=== PATIENT | female | born 1960 | race Caucasian/White ===

== ENCOUNTER 2018-03-12 08:57 | Outpatient (CLI) | payer OTHER, SELFPAY ==
[2018-03-12] MEDS: Albuterol HFA 18 GM 200 PUFF INH IH (15:36)
[2018-03-12] MEDS: Inhaler, Assist Device 1 EACH MC (15:36)
--- NOTE | 2018-03-14 12:24 | PFT_ITS ---
REQUESTING PROVIDER: Tiff Landaverde N.P. Spirometry shows mild obstructive airways disease with no significant bronchodilator response. Lung volumes show no evidence of restriction. Diffusion capacity borderline mildly reduced which is normal when corrected to alveolar volume Airways resistance normal. IMPRESSION: Borderline mild obstructive airways disease with no significant bronchodilator response. This is associated with borderline mild diffusion defect. Clinical correlation recommended. Images scanned to EMR. HAND SIGNED COPY OF THIS NOTE IS SCANNED INTO THE EMR SEE SCANNED DOCUMENT IN THE EMR FOR DATA AND GRAPHS
== END 2018-03-12 09:17 ==
PROVIDERS: PCP Nurse Practitioner Primary Care; Visit Provider Nurse Practitioner Family
DX: J98.01 Acute bronchospasm (principal)
CPT/HCPCS: 94060; 94150; 94726; 94729

== ENCOUNTER 2018-03-27 00:41 | Outpatient (CLI) | payer OTHER, SELFPAY ==
--- NOTE | 2018-03-27 15:13 | DI.MAMMO_ITS ---
SYMPTOM/DIAGNOSIS: SCREENING, Z12.31 MAMMOGRAMS: Mammograms were interpreted according to the usual protocol including computer analysis with CAD system, tomosynthesis and C view imaging. Comparison with prior examinations. Breast density, C. No masses or microcalcifications are seen. There is nothing to suggest malignancy. IMPRESSION: Negative mammogram. Routine screening is recommended. Category 1 , C. MQSA ASSESSMENT OF FINDINGS: Negative. Category 1. Patient will receive a letter notifying them of these results. Bi-RADS category C. The breasts are heterogeneously dense, which may obscure small masses.
== END 2018-03-27 01:01 ==
PROVIDERS: PCP Nurse Practitioner Primary Care; Visit Provider Nurse Practitioner Family
DX: Z12.31 Encounter for screening mammogram for malignant neoplasm of breast (principal)
CPT/HCPCS: 77063; 77067

== ENCOUNTER 2018-09-06 15:45 | Outpatient (REF) | payer OTHER, SELFPAY ==
[2018-09-06 22:04] LABS: Abs Immature Grans 0.01 k/cumm (0.0-0.09); Absolute Basophil Count 0.02 k/cumm (0.0-0.2); Absolute Eosinophil Count 0.19 k/cumm (0.0-0.7); Absolute Monocyte Count 0.56 k/cumm (0.11-0.7); Absolute Neutrophil Count 2.65 k/cumm (1.2-6.7); Basophils % 0.4; Eosinophils % 3.5; HCT 41.1 % (36.0-46.0); HGB 13.6 g/dL (12.0-15.5); Immature Grans % 0.2; Lymphocytes % 36.8; Mean Corp. HGB Concentration 33.1 g/dL (32.0-36.0); Mean Corpuscular Hemoglobin 29.7 pg (27.0-33.0); Mean Corpuscular Volume 89.7 fL (80-95); Mean Platelet Volume 10.7 fL (8.0-11.0); Monocytes % 10.3; Neutrophils % 48.8; Platelet Count 207 x1000/uL (130-400); RBC 4.58 m/cumm (4.00-5.20); White Blood Cell Count 5.43 k/cumm (4.4-10.8)
[2018-09-06 22:14] LABS: Iron 68 ug/dL (50-175); Total Iron Binding Capacity 323 ug/dL (250-450); Transferrin Sat 21 % (15-50)
[2018-09-06 22:31] LABS: Anion Gap 6.3 mmol/L (3-11); BUN 13 mg/dL (7-18); CO2 29.7 mmol/L (21.0-32.0); CREATININE 1.14 mg/dL (0.55-1.02); Calcium 9.2 mg/dL (8.5-10.1); Chloride 105 mmol/L (98-107); Estimated GFR 48.79 (mL/min/1.73m2); Ferritin 102 ng/mL (8-388); Glucose 205 mg/dL (70-100); Potassium 4.2 mmol/L (3.5-5.1); Sodium 141 mmol/L (136-145); TSH (W/Ref FT4) 1.61 uIU/mL (0.358-3.74)
== END 2018-09-06 16:05 ==
LOC: NCHCN 15:45
PROVIDERS: PCP Nurse Practitioner Primary Care; Visit Provider Nurse Practitioner Family
DX: F32.9 Major depressive disorder, single episode, unspecified (principal); J45.990 Exercise induced bronchospasm; R51 Headache; J44.9 Chronic obstructive pulmonary disease, unspecified; G47.00 Insomnia, unspecified
CPT/HCPCS: 80048; 82728; 83540; 83550; 84443; 85025

== ENCOUNTER 2018-09-14 16:31 | Outpatient (REF) | payer OTHER, SELFPAY ==
[2018-09-14 21:15] LABS: Hemoglobin A1C 6.3 % (4.5-6.2)
== END 2018-09-14 16:51 ==
LOC: NCHCN 16:31
PROVIDERS: PCP Nurse Practitioner Primary Care; Visit Provider Nurse Practitioner Family
DX: Z13.1 Encounter for screening for diabetes mellitus (principal); Z86.32 Personal history of gestational diabetes
CPT/HCPCS: 83036

== ENCOUNTER 2018-12-19 01:19 | Outpatient (CLI) | payer OTHER, SELFPAY ==
--- NOTE | 2018-12-19 14:00 | NS.NUTBLAN_ITS ---
Renetta Eric presents for prediabetes nutrition consult. She is concerned that her A1c is 6.3 3 months ago. In addition, she is concerned about how to nourish herself on a 4 day solo hike. She reports times in her life when she felt hypoglycemic and tends to eat every 3 hours or so. Renetta has lost 10 pounds over the past 2 months by cutting out coke and chocoloate. She has also decreased white flour, rice and sugar. She has plateaued at 140 pounds. BMI 21 Renetta eats oatmeal, cranberries and walnuts for breakfast; miso noodle soup, spinach and chives at lunch; salad, small turkey jeaneth for supper. She snacks on peanut butter crackers or applesauce. She is experienced at cooking on the hike with cold water noodles and brown rice with dheydrated vegetables. She eats trail mix of cherries, dark chocolate, almonds and cashews.She dehydrates sweet potato for her hike and eats dehydrated packaged protein and mixed meals. She believes she needs 3000 calories a day on her hike. INTERVENTION:Discussed diagnosis and pancreatic insufficiency versus insulin resistance. Given her BMI, it appears her elevated blood sugar is not because of insulin resistance. Discussed what happens with exercise and encouraged her to nourish herself as she can to keep her energy up during her hike.If blood sugars are elevated secondary to carbohydrate intake, it should be temporary, and unlikely given her energy expenditure. Reviewed diabetes food guide to identify foods that raise blood sugar; best carbohydrates to manage blood sugars and to nourish herself. She meets the prevent type2 diabetes recommendations of weight loss and physical activity and should not lose any more weight. PLAN: She will pack food for survival for her 4 da hike. She will look at diabetes food guide to plan meals She will be reassessed for diabetes risk in the near future.
== END 2018-12-19 01:39 ==
PROVIDERS: PCP Nurse Practitioner Primary Care; Visit Provider Dietitian, Registered
DX: R73.03 Prediabetes (principal); Z71.3 Dietary counseling and surveillance
CPT/HCPCS: 97802

== ENCOUNTER 2019-08-01 12:27 | Outpatient (REF) | payer OTHER, SELFPAY ==
--- NOTE | 2019-08-01 10:40 | PAPFT_PTH ---
PATIENT: Renetta Eric LOC: [facility]#:[id number] AGE/SX: 59/F ROOM: RE08/01/[address]: Tiff Landaverde : 1960 BED: DIS: 08/01/2019 SPEC #: [id number] RECD: 08/02/19 13:04 STATUS: CHEN [place] #: [id number] KRYSTAL: 08/01/19 10:[address]: Tiff Landaverde DEPT: [facility] Cytology RECD BY: Shelia Laguna ENTERED: 08/02/19 13:04 SP TYPE: PAPFT BRANT DR: Sophie Baez, [facility] Tissues: 1 - CX/ENDOCX FOR PAP SMEARS Procedures: PAP THIN PREP/UVM Screening HPV DNA PROBE Comments: [id number]
== END 2019-08-01 12:47 ==
LOC: NCHCN 12:27
PROVIDERS: PCP Nurse Practitioner Primary Care; Visit Provider Nurse Practitioner Family
DX: Z00.00 Encounter for general adult medical examination without abnormal findings (principal); Z12.4 Encounter for screening for malignant neoplasm of cervix; Z01.419 Encounter for gynecological examination (general) (routine) without abnormal findings; Z11.51 Encounter for screening for human papillomavirus (HPV)
CPT/HCPCS: 88142; 87624

== ENCOUNTER 2019-08-01 14:54 | Outpatient (CLI) | payer OTHER, SELFPAY ==
[2019-08-01 16:32] LABS: TSH (W/Ref FT4) 1.21 uIU/mL (0.36-3.74); Vitamin B12 682 pg/mL (193-986)
== END 2019-08-01 15:14 ==
PROVIDERS: PCP Nurse Practitioner Family; Visit Provider Nurse Practitioner Family
DX: R41.3 Other amnesia (principal); N95.1 Menopausal and female climacteric states
CPT/HCPCS: 36415; 82607; 84443

== ENCOUNTER 2019-09-05 01:44 | Outpatient (CLI) | payer OTHER, SELFPAY ==
--- NOTE | 2019-09-05 | DI.MAMMO_ITS ---
EXAM: MG MAMMO SCREENING CLINICAL HISTORY: SCREENING, Z12.31 TECHNIQUE: Bilateral full field digital CC and MLO mammographic images were obtained with 3D tomosyn thesis and utilizing computer aided detection (CAD). COMPARISON: Available for comparison. FINDINGS: Masses/Architectural Distortion: None seen. Microcalcifications: No suspicious pleomorphic-type are seen. Skin Thickening/Nipple Retraction: None. IMPRESSION: 1. No significant interval change with no specific features of malignancy noted. 2. Unless there is more urgent need, screening mammography is recommended, as per [employer] guidelines. BI-RADS Cat 1 - Negative Breast Density - Category C - Heterogeneously dense The mammogram demonstrates the patient's breast tissue is dense. Dense breast tissue is very common a nd is not abnormal but dense breast tissue can make it harder to find cancer on a mammogram. Also, de nse breast tissue may increase their breast cancer risk. This information about the result of the [facility] mogram report was provided to the patient to raise their awareness. Use this report when you speak wi th the patient about their risks for breast cancer, which includes their family history. At that time , you may recommend for more screening tests (Ultrasound or MRI) as they might be useful based on the ir risk. A negative radiographic report should not delay biopsy if a dominant or clinically suspicious mass is present. Up to ten percent of cancers are not identified on mammography. A negative report may reinforce clinical impression. Adenosis and dense breasts may obscure an underlying neoplasm. False positive reports average 6 to 10%. Patient will receive a letter notifying them of these results.
== END 2019-09-05 02:04 ==
PROVIDERS: PCP Nurse Practitioner Family; Visit Provider Nurse Practitioner Family
DX: Z12.31 Encounter for screening mammogram for malignant neoplasm of breast (principal)
CPT/HCPCS: 77063; 77067

== ENCOUNTER 2020-12-18 20:20 | Outpatient (REF) | payer OTHER, SELFPAY ==
[2020-12-21 09:26] LABS: Alpha 1 Antitrypsin,Serum 97 mg/dL (90-200)
== END 2020-12-18 20:21 | disposition home or self-care (01) ==
LOC: NCHCN 20:20
PROVIDERS: PCP Nurse Practitioner Family; Visit Provider Nurse Practitioner Family
DX: J44.9 Chronic obstructive pulmonary disease, unspecified (principal)
CPT/HCPCS: 82103

== ENCOUNTER 2021-01-25 07:15 | Day surgery (SDC) | payer OTHER, SELFPAY ==
--- NOTE | 2021-01-25 06:40 | W.COLOREPORT ---
Date of service: 01/25/21 Time of Service: 08: Colonoscopy Report Date of procedure: 01/25/21 Pre-op diagnosis general: Colon Cancer Screening, Family history Post-op diagnosis procedure note: same (and polyps) Procedure: Colonoscopy with polypectomy Surgeon: Kristan Felix Anesthesia Type: General:No Airway (ASA 2/Blane Montgomery CRNA) Estimated blood loss (mL): 3 Pathology: other (sigmoid polyp, rectal polyp x5) Complications: None Disposition: same day Indications: The patient is here for Colonoscopy pre-op. Her last screening was in 2015 and was remarkable for hyperplastic polyp. She has a family history of colon cancer in her sister at the age of 51. Of note she reports a history of IBS and she has been noting more frequent episodes (1-2x/wk) of cramping and diarrhea. These bouts last ~20 mins and then completely resolve. -Discussed colonoscopy bowel prep as well as the procedure. Discussed possible complications of the procedure to include bleeding, pain, perforation, missed small lesion/polyp, sore throat, aspiration and adverse reaction to the medications. Questions were answered to patient?s satisfaction. No guarantees were implied or given. Prep: Miralax/Dulcolax Procedure Start Time: :22 Procedure End Time: 08:59 Retraction Time: 26 minutes Findings: 6 small polyps Procedure Description: After informed consent was obtained the patient was taken to the procedure room and placed in a left decubitous position. Monitors were applied and a time out was done. The patients name, date of , procedure, allergies to medications and metal in their body was reviewed. The patient was then sedated. Once sedated and comfortable a rectal exam was done. External exam was normal. Internal exam revealed a normal sphincter tone and no palpable masses. The scope was then introduced and retro-flexed. No internal hemorrhoids, polyps or masses were identified on retro-flexion. The scope was then advanced to the cecum with some difficulty due to a tortuous colon. The ileocecal valve and appendiceal orifice were identified. The prep was adequate. The scope was then slowly retracted over 26 minutes back into the rectum. Polyps were removed with cold forceps in the sigmoid colon x1 and rectum x3. 2 polyps were removed with cold snare in the rectum. There was no diverticulosis noted. The scope was removed and the patient was woken up and taken back to Same day surgery in stable condition. The patient tolerated the procedure well and there were no immediate complications. Follow up: The patient should follow up in 5 years unless they develop changes in bowel habits or other new gastrointestinal complaints.
--- NOTE | 2021-01-25 06:41 | W.PM.DSUDISC ---
Discharge Plan Disposition Patient Disposition: HOME Condition: Good Discharge Details Reason For Visit: Colonoscopy Attending Provider: Kristan Felix Primary Care Provider: Tiff Landaverde Home Meds and New Rx's Prescriptions: Continued bupropion HCl [Wellbutrin XL] 300 MG tablet extended release 24 hr 300 mg PO DAILY RF: 0 albuterol sulfate [ProAir HFA] 90 mcg/actuation HFA aerosol inhaler 2 puff inhalation Q6H PRNRF: 0 zolpidem 5 mg tablet 5 mg PO QHS PRNRF: 0 acetaminophen [Tylenol Extra Strength] 500 mg tablet 1,000 mg PO Q6H PRNRF: 0 Glucoten 1 EACH tablet 2 tab PO DAILY RF: 0 Discontinued bisacodyl [Dulcolax (bisacodyl)] 5 mg tablet,delayed release (DR/EC) 5 mg PO ONCE Qty: 4 RF: 0 polyethylene glycol 3350 17 gram/dose powder 17 g PO ONCE Qty: 238 RF: 0 Discharge Instructions Instructions: Colorectal Polyps (GEN) Additional Instructions: Findings: 6 small polyps Follow up: 5 years Please call if you develop: fevers >101.5 Nausea or Vomiting Abdominal pain that is not transient Rectal bleeding that is more then a tbsp A hard abdomen and inability to pass gas DAY SURGERY UNIT POST ENDOSCOPY INSTRUCTIONS Instructions for everyone who is given Anesthesia: For your safety, please do the following for the next 24 Hours: a. Do not drive or operate dangerous equipment b. Do not drink alcohol beverages or use any recreational drugs for the first 24 hours or while taking pain medications. The medications in your body may have a reaction that can be dangerous. c. Do not make any important decisions or sign any important papers 1. Generally there are no restrictions on your activity after a day or so has gone by, but you may feel a bit fatigued for a few days. 2. After you arrive home you may have a light meal and return to a normal diet as you can tolerate it without feeling sick to your stomach. 3. After surgery, you may feel pain or discomfort. This should be only transient, but if it persists please contact your doctor. 4. If there are any questions regarding the findings of your procedure, please feel free to contact your doctor. 6. If you are unable to contact your doctor with a problem, contact the hospital at [phone]. 7. Continue all your regular medications unless directed otherwise. I understand the above instructions and have no questions. Signature of Patient or Responsible Adult Escort Date/Time Name of Responsible Adult Escort Signature of Nurse Date/Time Activity:: Activity as Tolerated Diet:: As Tolerated Discharge Orders Discharge Orders: Discharge Order (Routine); Ordered 01/25/21 Ordered By: Kristan Felix
[2021-01-25 07:32] VITALS: BP 133/85; PULSE 72; RESP 16; TEMP 36.3; O2SAT 98
[2021-01-25] MEDS: Lactated Ringers 1,000 ML 80 ML IV (07:43)
--- NOTE | 2021-01-25 07:47 | W.ANESPRE ---
General Info Date of Service Date Performed: 01/25/21 Height: 5 ft 8 in Weight: 62.5 kg Body Mass Index (BMI): 20.9 Surgical Procedure: Operation Date: 01/25/21 08:20 Proposed Procedures Side Surgeon p Phyllis Felix MD Meds Allergies and Home Medications Allergies Allergy/AdvReac Type Severity Reaction Status Date / Time ibuprofen AdvReac Diarrhea Verified 01/25/21 07:27 Home Medication Medication Instructions Recorded bupropion HCl [Wellbutrin XL] 300 mg PO DAILY tab-cap 02/08/16 Glucoten 2 tab PO DAILY 02/24/16 acetaminophen 500 mg tablet 1,000 mg PO Q6H PRN tab 12/22/20 albuterol sulfate 90 mcg/actuation 2 puff INHALATION Q6H PRN 12/22/20 aerosol inhaler zolpidem 5 mg tablet 5 mg PO QHS PRN 12/22/20 bisacodyl 5 mg tablet,delayed 5 mg PO ONCE #4 tab 01/14/21 release polyethylene glycol 3350 17 17 g PO ONCE #238 g 01/14/21 gram/dose oral powder Current Visit Medications: Current Medications Generic Name Dose Route Start Last Admin Trade Name Freq PRN Reason Stop Dose Admin Hyoscyamine Sulfate 0.125 mg 01/25/21 06:41 Hyoscyamine 0.125 Mg Sl/Oral/Chew SL DIRECTED PRN Ringer's Solution 1,000 mls @ 80 mls/hr 01/25/21 06:00 01/25/21 07:43 IV 02/21/21 23:59 80 mls/hr INFUSION YONG Administration IV Miscellaneous Supplies 1 each 01/25/21 06:00 Iv Access IV 02/21/21 23:59 DIRECTED YONG Ondansetron HCl 4 mg 01/25/21 06:41 Ondansetron 4 Mg/2 Ml Vial IVP Q4H PRN PRN Nausea / Vomiting Sodium Chloride 0 ml 01/25/21 06:00 Normal Saline Flush 10 Ml Syr IV 02/21/21 23:59 PRN PRN Sodium Chloride 0 ml 01/25/21 06:00 Normal Saline 10 Ml Vial IJ 02/21/21 23:59 DIRECTED PRN Sterile Water 0 ml 01/25/21 06:00 Water,Injection,Sterile 10 Ml Vial IJ 02/21/21 23:59 DIRECTED PRN PFSH Active Problems Active Problems: Problem Status Onset Code Stress incontinence N39.3 Adjustment disorder F43.20 Memory impairment R41.3 Former smoker Z87.891 Insomnia G47.00 COPD (chronic obstructive pulmonary disease) J44.9 Chronic headaches R51.9, G89.29 Prediabetes R73.03 Screening for colon cancer Z12.11 Family history of colon cancer Z80.0 Encounter for screening for other viral diseases Z11.59 Medical History Medical History Depression IBS (irritable bowel syndrome) Surgical History Surgical History Colonoscopy - IV Sedation (02/24/16) Tobacco Smoking/Tobacco Use Status: Former Tobacco Use Alcohol Alcohol Intake: current Alcohol intake frequency: 0-2 drinks per day Alcohol type: wine Substance Use Substance use: Never Vital Signs and Lab Results Vital Signs Most Recent Vital Signs in EMR: Most Recent Vital Signs Temp Pulse Resp BP Pulse Ox 36.3 C L 72 16 133/85 98 01/25/21 07:32 01/25/21 07:32 01/25/21 07:32 01/25/21 07:32 01/25/21 07:32 Lab Results Blood Type / Crossmatch: No Data to Display Complete Blood Count: No Data to Display Complete Metabolic Panel: No Data to Display Liver Function Panel: No Data to Display Coagulation Panel: No Data to Display Cardiac Panel: No Data to Display Arterial Blood Gas: No Data to Display Venous Blood Gas: No Data to Display Pancreas Panel: No Data to Display Thyroid Panel: No Data to Display Infectious Disease: No Data to Display Blood Cultures: No Data to Display Toxicology Panel: No Data to Display Imaging and Studies Imaging and Studies Pulmonary Function Summary: 2018: boarderline mild obstructive airways and diffusion defect. Anesthesia Assessment and Plan Anesthesia History Personal History: No History of Anesthesia Complications Family History: No Family History of Anesthesia Complications Exercise Tolerance Exercise Tolerance: Metabolic Equivalents>4 Cardiac & Pulmonary Exam Cardiac Exam: Normal S1/S2 Heart Sounds Pulmonary Exam: Clear Bilateral Breath Sounds Airway Exam Known Difficult Airway: No Mallampati Class: 2 Mouth Opening: Normal (> 3cm) Thyromental Distance: Greater than 3 cm Neck Range of Motion: Full ROM Neck Circumference: Normal Teeth Condition: Normal Dentition ASA Classification ASA Score: ASA 2 Emergency Case?: No NPO Status NPO Status: NPO Clears >2 hours, Solids >8 hours Anesthesia Plan Resuscitation Status: Full Code Anesthesia Technique: General Anesthesia Airway Planned: Natural Airway Monitors Used: Standard Monitors Preoperative Comments:: 60 yo female for colo, last screening 2016 with polyps, and family history of colon cancer.
[2021-01-25 08:00] VITALS: BMI 20.9
--- NOTE | 2021-01-25 08:25 | BOWEL_PTH ---
PATIENT: Renetta Eric LOC: [facility] U#:[id number] AGE/SX: 60/F ROOM: RE01/25/[address]: Kristan Felix MD : 1960 BED: DIS: 01/25/2021 SPEC #: [id number] RECD: 01/25/21 12:45 STATUS: CHEN REQ #: [id number] KRYSTAL: 01/25/21 08:[address]: Kristan Felix DEPT: Surgical Specimen RECD BY: Shelia Laguna ENTERED: 01/25/21 12:45 SP TYPE: Bowel OTHR DR: Tiff Landaverde Tissues: 1 - BIOPSY BOWEL 2 - BIOPSY BOWEL Procedures: GROSS AND MICRO LEVEL 4 Comments: [id number]
[2021-01-25 09:10] VITALS: BP 127/78; PULSE 66; RESP 16; TEMP 36; O2SAT 97
[2021-01-25 09:37] VITALS: BP 126/80; PULSE 54; RESP 15; TEMP 36; O2SAT 100
--- NOTE | 2021-01-25 14:14 | W.ANESPOSTOP ---
Postoperative Evaluation Date, Time and Location Date Performed: 01/25/21 Time Performed: 14:14 Patient Location: Day Surgery Unit Vital Signs Most Recent Imported Vital Signs: Most Recent Vital Signs Temp Pulse Resp BP Pulse Ox 36.0 C L 54 L 15 126/80 100 01/25/21 09:37 01/25/21 09:37 01/25/21 09:37 01/25/21 09:37 01/25/21 09:37 Pain Score Most Recent Pain Score: Most Recent Pain Score Pain Level 0 01/25/21 09:37 Assessment Mental Status: Awake (Alert & Oriented to Patient Baseline) Airway and Respiratory Function: Patent airway with normal (patient baseline) respiratory exam Cardiovascular Function: Hemodynamically Stable Hydration Status: Adequately Hydrated Nausea & Vomiting: No Nausea or Vomiting Pain: Pt. Denies Any Pain Peripheral Nerve Block: Patient did not receive a nerve block
== END 2021-01-25 10:05 | disposition home or self-care (01) ==
PROVIDERS: PCP Nurse Practitioner Family; Visit Provider Surgery
PROC: 0DJD8ZZ Inspection of Lower Intestinal Tract, Via Natural or Artificial Opening Endoscopic (ICD-10-PCS; CPT 45378; principal; 2021-01-25 08:15)
DX: Z12.11 Encounter for screening for malignant neoplasm of colon (principal); Z80.0 Family history of malignant neoplasm of digestive organs; Z86.010 Personal history of colon polyps; K58.9 Irritable bowel syndrome, unspecified; R73.03 Prediabetes; J44.9 Chronic obstructive pulmonary disease, unspecified; K63.5 Polyp of colon; K62.1 Rectal polyp; D12.5 Benign neoplasm of sigmoid colon
CPT/HCPCS: 45385; 45380; 88305; J2001

== ENCOUNTER 2021-06-23 15:06 | Outpatient (CLI) | payer OTHER, SELFPAY ==
--- NOTE | 2021-06-23 | DI.RAD_ITS ---
Exam(s) XR FOOT RT COMPLETE EXAM: XR FOOT RT COMPLETE CLINICAL HISTORY: HEEL PAIN, M79.673. TECHNIQUE: 2D digital imaging was performed of the right foot. Three images were obtained. AP, obl ique and lateral views were obtained. COMPARISON: No previous for comparison. FINDINGS: BONES: No acute fracture is present. No bony destructive lesion is seen. There is a tiny calcaneal sp ur. JOINTS: No dislocation present. SOFT TISSUE: Normal. IMPRESSION: Small plantar calcaneal spur. DATA REPOSITORY: RADIATION DOSE DELIVERED:
--- NOTE | 2021-06-23 | DI.RAD_ITS ---
Exam(s) XR FOOT LT COMPLETE EXAM: XR FOOT LT COMPLETE CLINICAL HISTORY: HEEL PAIN, M79.673. TECHNIQUE: 2D digital imaging was performed of the left foot. Three images were obtained. AP, obli que and lateral views were obtained. COMPARISON: No exams were available for comparison FINDINGS: BONES: No acute fracture is present. No bony destructive lesion is seen. There is a small plantar marlo caneal spur. JOINTS: No dislocation present. SOFT TISSUE: Normal. IMPRESSION: Small plantar calcaneal spur. DATA REPOSITORY: RADIATION DOSE DELIVERED:
== END 2021-06-23 15:26 ==
PROVIDERS: PCP Nurse Practitioner Family; Visit Provider Nurse Practitioner Family
DX: M79.671 Pain in right foot (principal); M79.672 Pain in left foot; M77.31 Calcaneal spur, right foot; M77.32 Calcaneal spur, left foot
CPT/HCPCS: 73630

== ENCOUNTER → 2022-01-20 00:46 | Outpatient (CLI) | payer OTHER, SELFPAY ==
--- OUTSIDE RECORDS SUMMARY | 2022-01-20 00:49 | XMS_ITS | Encounter Summary ---
:1960 Author Organization [facility] Address [address] [place] [address] Care Team Providers Name Role Phone Mirza Shukla Primary Care Provider Encounter Details Date Type Department Care Team Description 07/26/2011 Results Only [facility] Mirza Shukla FNP Laboratory Services - [facility] [address] [address] [place], [place] [id number] [phone] Social History Tobacco Use Types Packs/Day Years Used Date Never Assessed Sex Assigned at Date Recorded Not on file documented as of this encounter Plan of Treatment Not on filedocumented as of this encounter Procedures Procedure Name Priority Date/Time Associated Diagnosis Comme nts PAP TEST- RESULT Routine 07/26/2011 0:00 EST Resu lts for this ONLY procedure are i n the results section. documented in this encounter Results PAP TEST- RESULT ONLY (07/26/2011 0:00 EST) Pathology Report: CYTOPATHOLOGY REPORT [facility] Reports generated via electronic interface contain keturah ginal data; however they are lacking the format of the original re port. Caution should be taken when reading/interpreting unfo rmatted reports. Name: ? RENETTA ERIC ? Accession #: ? [id number] : ? 1960 (Age: 51) ??F ?Collect Date: ? 07/04 Location: ? [facility] ? Receive Date : ? 07/28/2011 Provider: ?MIRZA SHUKLA SPEEDER MACHINE OPERATOR Copy to: ? Specimen/Source: ? Pap Test, Cervix/Endocervix, ThinPrep Imaging System with manual evaluation Last Menstrual Period: ? 07/04/2011 ? SPECIMEN ADEQUACY ? Satisfactory for Evaluation - transformation zone component present GENERAL CATEGORIZATION ? Negative for Intraepithelial Lesion or Malignan cy ? Document reviewed and electronically signed by: ? SHANNAN Carrizales(ASCP) ? Report Date: ??08/01/2011 15:23 End of Report Specimen Performing Organization Address City/State/ZIP Code Phon e Number [facility] [address] [place] [address] SERVICES [facility] [address] [place] [address] documented in this encounter Visit Diagnoses Not on filedocumented in this encounter Care Teams Last Repairer Relationship Specialty Start Date End Date Mirza Shukla FNP PCP - General 09/14/10 [address] [place], [place] [address] documented as of this encounter
--- OUTSIDE RECORDS SUMMARY | 2022-01-20 00:49 | XMS_ITS | Encounter Summary ---
:1960 Author Organization [facility] Address [address] [place] [address] Care Team Providers Name Role Phone Radha Shukla NURSE OBGYN Primary Care Provider Encounter Details Date Type Department Care Team Description 08/07/2020 Lab Requisition [facility] Outr Resulting Lab, Pathology & Laboratory Provider [facility] [address], [place] [address] Social History Tobacco Use Types Packs/Day Years Used Date Never Assessed Sex Assigned at Date Recorded Not on file documented as of this encounter Plan of Treatment Not on filedocumented as of this encounter Procedures Procedure Name Priority Date/Time Associated Diagnosis Comme nts COVID-19 TEST [facility] Today 08/07/2020 9:38 EST LAB PCR COVID-19 TESTING Routine 08/07/2020 9:38 EST Resu lts for this procedure are i n the results section. documented in this encounter Results COVID-19 TEST [facility] LAB PCR (08/07/2020 9:38 EST) Specimen Swab - Entire nasopharynx (body structur e) Performing Organization Address City/State/ZIP Code Phon e Number [facility] [address] [place] [address] SERVICES COVID-19 TESTING (08/07/2020 9:38 EST) COVID-19 rt-PCR Negative Negative [facility] Result Comment: [facility] This test has not been FDA c leared or approved. This test has been authorized by FDA under an EUA for use by authorized laboratories. This test has been authorized only for detection of nucleic acid fro SERVICES m 2019-nCoV, not for any oth er viruses or pathogens. This test is only authorized for the duration of the declaration that circumstances exist justifying the authorization of emergency use of in vitro d iagnostic tests for detectio n and/or diagnosis of 2019-nCoV under section 564(b)(1) of Act, 21 U.S.C ?? 360bbb-3(b) (1), unless the authorization is terminated or revoked sooner. Negative results do not prec lude 2019-nCoV infection and should not be used as the sole basis for treatment or other patient management decisions. Negative results must be combined with clinical observa tions, patient history, and epidemiological informatio n. Performed on the [employer] Fusion instrument Performing Lab [place] [facility] Lab [facility] SERVICES Specimen Swab Performing Organization Address City/State/ZIP Code Phon e Number [facility] [address] [place] [address] SERVICES documented in this encounter Visit Diagnoses Not on filedocumented in this encounter Care Teams Marine Underwriter Relationship Specialty Start Date End Date Radha Shukla FNP PCP - General 09/14/10 [address] [place], [place] [phone] documented as of this encounter
--- OUTSIDE RECORDS SUMMARY | 2022-01-20 00:49 | XMS_ITS | Encounter Summary ---
:1960 Author Organization [facility] Address [address] [place] [address] Care Team Providers Name Role Phone Unknown, Provider Primary Care Provider Encounter Details Date Type Department Care Team Description 04/08/2004 Results Only [facility] - Mirza Bazan FNP conversion [address] [place], [place] [address] [place] [address] [phone] (Wo rk) Social History Tobacco Use Types Packs/Day Years Used Date Never Assessed Sex Assigned at Date Recorded Not on file documented as of this encounter Plan of Treatment Not on filedocumented as of this encounter Procedures Procedure Name Priority Date/Time Associated Diagnosis Comme nts CYTOPATHOLOGY Routine 04/08/2004 0:00 EDT Results for this procedure are i n the results section . documented in this encounter Results CYTOPATHOLOGY (04/08/2004 0:00 EDT) Pathology Report: CYTOPATHOLOGY REPORT [facility] Reports generated via electronic interface contain keturah ginal data; however they are lacking the format of the original re port. Caution should be taken when reading/interpreting unfo rmatted reports. Name: ? RENETTA VAZQUEZ ? Accession #: ? [id number] : ? 1960 (Age: 43) ??F ?Collect Date: ? 01/2004 Location: ? [facility] ? Receive Date : ? 04/12/2004 Provider: ?MIRZA GANDHI QUALITY ASSURANCE TECH Copy to: ? Specimen/Source: ?ThinPrep Pap Test, Cervix/ Endocervix Last Menstrual Period: ? 03/06 Other: ? HPVA - HPV testing requested if ASC-US on the current ThinPrep Pap test. ? SPECIMEN ADEQUACY ? Satisfactory for Evaluation - transformation zone component present GENERAL CATEGORIZATION ? Negative for Intraepithelial Lesion or Malignan cy ? Document reviewed and electronically signed by: ? Becki Gaytan, SCT(ASCP) ? Report Date: ??04/14/2004 15:10 End of Report Specimen Performing Organization Address City/State/ZIP Code Phon e Number [facility] [address] [place] [address] SERVICES [facility] [address] [place] [address] documented in this encounter Visit Diagnoses Not on filedocumented in this encounter Care Teams Drafter Civil Relationship Specialty Start Date End Date Unknown, Provider, PCP - General 04/29/09 09/13/10 documented as of this encounter
--- OUTSIDE RECORDS SUMMARY | 2022-01-20 00:49 | XMS_ITS | Encounter Summary ---
:[address] [facility] Address [address] [place] [address] Care Team Providers Name Role Phone Radha Shukla LEVI Primary Care Provider Encounter Details Date Type Department Care Team Description 08/02/2019 Lab Requisition [facility] Tiff Landaverde En [place] for general adult medical examination without abnormal findings; Pathology & H, FIELD MARKETING MANAGER Encounter for screening for malignant ne oplasm of cervix; Laboratory Medicine [address] [facility] for gynecological examination (general) (routine) without abnormal findings - [facility] [address] [place] [phone] Social History Tobacco Use Types Packs/Day Years Used Date Never Assessed Sex Assigned at Date Recorded Not on file documented as of this encounter Plan of Treatment Not on filedocumented as of this encounter Procedures Procedure Name Priority Date/Time Associated Diagnosis Comme nts PAP TEST Today 08/01/2019 10:40 Encounter for general Re sults for this EST adult medical procedure are in examination without the resu lts abnormal finding s section. Encounter for screening for malignant neoplasm of cervix Encounter for gynecological examination (general) (routine) without abnormal findings HUMAN PAPILLOMAVIRUS Today 08/01/2019 10:40 Encounter for ge neral Results for this (HPV) DETECTION-HIGH EST adult medical proced ure are in RISK TYPES examination without the resu lts abnormal finding s section. Encounter for screening for malignant neoplasm of cervix Encounter for gynecological examination (general) (routine) without abnormal findings documented in this encounter Results HUMAN PAPILLOMAVIRUS (HPV) DETECTION-HIGH RISK TYPES (08/01/2019 10:40 EST) Human Papillomavirus NegativeComment: No Negative UV MEDICAL (HPV) Detection-High E6 or E7 mRNA is CENTER LABORATOR Y Types detected from HPV SERVICES types 16,18,31,33,35,39,45 ,51,52,56,58,59,66, and 68 by manager outreach mediated amplification. Specimen Pap Test - Cervix and/or Endocervix Performing Organization Address City/[facility]/ZIP Code Phon e Number [facility] [address] [place] [address] SERVICES PAP TEST (08/01/2019 10:40 EST) Specimens A. Cervix and/or [facility] MEDICAL Endocervix, , CENTER ThinPrep Imaging LABORATORY System with Manual SERVICES Evaluation Specimen Adequacy Satisfactory for UV MEDICAL Evaluation - CENTER assessment of LABORATORY transformation zone SERVICES component not applicable ( e.g. atrophy, vaginal sample, hysterectomy) General Negative for UV MEDICAL Categorization intraepithelial CENTER lesion or malignancy LABORATORY SERVICES Attestation By the signature below, the attending physician certifies that they have personally conducted a gross and/or microscopic [facility] Electronically examination of the described specimens and rendered or confirmed the above diagnosis. CENTER signed by MARIA A Gonzalez CT( CP) SERVICES on 08/09/2019 at 1535 Clinical History NONE [facility] SERVICES HPV The result for the Human Pap illomavirus (HPV) Detection-High Risk Types is Negative. No E6 or E7 mRNA is detected from HPV types 16,18,31,33,35,39,45,51,52,56,58,59,66, and 68 by manager outreach mediated M MEDICAL amplification.Testing was pe rformed on specimen [id number] and was resulted on 08/09/2019 1527 EST by MAGUE, LAB INSTRUMENT RESULTS IN [facility] SERVICES Scanned Images [facility] SERVICES Specimen Pap Test - Cervix and/or Endocervix Performing Organization Address City/[facility]/ZIP Code Phon e Number [facility] [address] [place] [address] SERVICES documented in this encounter Visit Diagnoses Diagnosis Encounter for general adult medical exam ination without abnormal findings Unspecified general medical examination Encounter for screening for malignant ne oplasm of cervix Screening for malignant neoplasm of the cervix Encounter for gynecological examination (general) (routine) without abnormal findings documented in this encounter Care Teams Award Clerk Relationship Specialty Start Date End Date Radha Shukla FNP PCP - General 09/14/10 [address] [place], [place] [id number] documented as of this encounter
--- OUTSIDE RECORDS SUMMARY | 2022-01-20 00:49 | XMS_ITS | Encounter Summary ---
:1960 Author Organization [facility] Address [address] [place] [address] Care Team Providers Name Role Phone Radha Shukla PAYROLL CLERK Primary Care Provider Encounter Details Date Type Department Care Team Description 02/24/[address] [facility] Andrew Gaming DO [phone] [facility] [place], [place] [phone] (Wo rk) Social History Tobacco Use Types Packs/Day Years Used Date Never Assessed Sex Assigned at Date Recorded Not on file documented as of this encounter Plan of Treatment Not on filedocumented as of this encounter Procedures Procedure Name Priority Date/Time Associated Diagnosis Comme nts SURGICAL PATHOLOGY Routine 02/24/2016 10:51 Resul ts for this EDT procedure are i n the results section. documented in this encounter Results SURGICAL PATHOLOGY (02/24/2016 10:51 EDT) Pathology Report: SURGICAL PATHOLOGY REPORT [facility] Reports generated via electronic interface contain keturah ginal data; LABORATORY however they are lacking the format of the original re port. SERVICES Caution should be taken when reading/interpreting unfo rmatted reports. Name: ? RENETTA ERIC ? Accession #: ? [id number] ? : ? 1960 (Age: 55) ??F ? Collect Date: ? 02/24/2016 ? Location: ? [facility] ? Receive Date: ? 02/25/20 16 ? Provider: ANDREW GAMING DO Copy to: [facility] SUPERVISOR ? Final Pathologic Diagnosis: RECTUM, POLYP, BIOPSY: - ??Hyperplastic polyp with prolapse-type change. Document reviewed and electronically signed by: LESLIE POTTS MD Report ??Date: 02/26/2016 11:25 By the signature above, the attending physician certif ies that he/she has personally conducted a gross and/or microscopic examin ation of the described specimens and rendered or confirmed the above diagnosi s. Specimen(s) Received: Rectal polyp Clinical History: Family h/o colon CA; clinical diagnosis code: Z80.0 Gross Description: ? Received in formalin labelled with proper patient identification (initials D, D) and rectal polyp are six pink-ta n tissues (0.2 x 0.2 x 0.2 cm to 0.3 x 0.2 x 0.2 cm). Entirely submitted in 1 and 2. Maria Luisa Elena 02/25/2016 12:08 PM End of Report Specimen Performing Organization Address City/State/ZIP Code Phon e Number [facility] [address] [place] [address] SERVICES documented in this encounter Visit Diagnoses Not on filedocumented in this encounter Care Teams Youth Manager Relationship Specialty Start Date End Date Radha Shukla FNP PCP - General 09/14/10 [address] [place] [address] documented as of this encounter
--- OUTSIDE RECORDS SUMMARY | 2022-01-20 00:49 | XMS_ITS | Encounter Summary ---
:1960 Author Organization [facility] Address [address] [place] [address] Care Team Providers Name Role Phone Unavailable Primary Care Provider Unavailable Encounter Details Date Type Department Care Team Description 04/27/2009 Orders Only [facility] Celso Arauz , Laboratory Services - [address] YARI CADENA [address] [place] [address] [place], [place] [phone] Social History Tobacco Use Types Packs/Day Years Used Date Never Assessed Sex Assigned at Date Recorded Not on file documented as of this encounter Plan of Treatment Not on filedocumented as of this encounter Procedures Procedure Name Priority Date/Time Associated Diagnosis Comme [facility] SURGICAL PATHOLOGY Routine 04/27/2009 0:00 EDT Re sults for this procedure are i n the results section. documented in this encounter Results SURGICAL PATHOLOGY (04/27/2009 0:00 EDT) Pathology Report: SURGICAL PATHOLOGY REPORT ? [facility] Reports generated via electr PacketFront interface contain original data; ? LAB however they are lacking the format of the original report. ? Caution should be taken when reading/interpreting unformatted reports. ? Name: ? TAYLOR, RENETTA ? Accession #: ? [id number] ? : ? 1960 (Age: 48) ??F ? Collec t Date: ? 04/27/2009 ? Location: ? [facility] ? R eceive Date: ? 04/28/2009 ? Provider: CELSO FORREST SON DO ? Copy to: MIRZA GANDHI DRUG ABUSE COUNSELOR ? Final Pathologic Diagnosis: ? Skin of leg, left, pr etibial surface, excision: ? - Seborrheic keratosi s. ? Microscopic Description: ? The stratum corneum i s thickened by compact and basketweave orthokeratosis with formation of horn pseud ocysts. ??The epidermis is acanthotic with formation of broad and anastomosing tr abeculae. ??The trabeculae are composed of basaloid ?? keratinocytes with round uni form nuclei. ??The keratinocytes have a variable ? amount of melanin pigment. ? ?(Dr. Tan)/maldonado ? Document reviewed and electr onically signed by: ? Chloe Tan MD ? Report ??Date: 04/29/2009 15 :02 ? By the signature above, the attending physician certifies that he/she has ? personally conducted a gross and/or microscopic examination of the described ? specimens and rendered or co nfirmed the above diagnosis. ? Specimen(s) Received: ? Skin lesion left pret ibial surface ? Clinical History: ? Left leg skin lesion ??pretibial surface, changing in size and color. ? Gross Description: ? Received in formalin labelled Taylor, Renetta and skin lesion L pretibial surface is an unoriented el liptical excision of kingsley skin which measuring 1.2 x 0.6 cm and is excised to a d epth of 0.2 cm. ??There is a firm, brown, ? asymmetrical nodule measurin g 0.6 x 0.4 x 0.1 cm. The margins are inked black. ?? The specimen is serially sec tioned and entirely submitted as (A1) central ? sections and (A2) tips, reve rse en face. ??(Juliano Pennington)/alyshak ? End of Report ? Specimen Performing Organization Address City/State/ZIP Code Phon e Number [facility] [address] [place] [address] SERVICES [facility] [address] [place] [address] documented in this encounter Visit Diagnoses Not on filedocumented in this encounter
--- OUTSIDE RECORDS SUMMARY | 2022-01-20 00:49 | XMS_ITS | Encounter Summary ---
:1960 Author Organization [facility] Address [address] [place] [address] Care Team Providers Name Role Phone Unknown, Provider Primary Care Provider Encounter Details Date Type Department Care Team Description 03/29/2005 Results Only [facility] - Robert Medrano MD conversion [address] [place] [phone] Social History Tobacco Use Types Packs/Day Years Used Date Never Assessed Sex Assigned at Date Recorded Not on file documented as of this encounter Plan of Treatment Not on filedocumented as of this encounter Procedures Procedure Name Priority Date/Time Associated Diagnosis Comme [facility] SURGICAL PATHOLOGY Routine 03/29/2005 0:00 EDT Re sults for this procedure are i n the results section. documented in this encounter Results SURGICAL PATHOLOGY (03/29/2005 0:00 EDT) Pathology Report: SURGICAL PATHOLOGY REPORT [facility] Reports generated via electronic interface contain keturah ginal data; LAB however they are lacking the format of the original re port. Caution should be taken when reading/interpreting unfo rmatted reports. Name: ? RENETTA VAZQUEZ ? Accession #: ? [id number] ? : ? 1960 (Age: 44) ??F ? Collect Date: ? 03/29/2005 ? Location: ? [facility] ? Receive Date: ? 005 ? Provider: JAJA VALENTIN MD Copy to: [facility]ZRA [facility] TECHNICAL AID ? Final Pathologic Diagnosis: ? Colon, 20 cm, polyp, biopsy: - Hyperplastic polyp (1 piece) with no evidence of vannesa noma. Document reviewed and electronically signed by: Jessica Abreu MD Report ??Date: 03/31/2005 15:09 By the signature above, the attending physician certif ies that he/she has personally conducted a gross and/or microscopic examin ation of the described specimens and rendered or confirmed the above diagnosi s. Specimen(s) Received: ? Polyp @ 20 cm Clinical History: ? F/U polyp, family hx colon cancer, 2 small sigm oid polyps Gross Description: ? Received in Hollande' s fixative labelled Gilbert and polyp at 20 cm is a single, kingsley, polypoid soft tissue frag ment measuring 0.2 x 0.1 x 0.1 cm. The specimen is submitted intact in one cassette. (Dr. Noe brady)/mpl End of Report Specimen Performing Organization Address City/State/ZIP Code Phon e Number [facility] [address] [place] [address] SERVICES [facility] [address] [place] [address] documented in this encounter Visit Diagnoses Not on filedocumented in this encounter Care Teams Maintenance Mechanic Relationship Specialty Start Date End Date Unknown, Provider, PCP - General 04/29/09 09/13/10 documented as of this encounter
--- OUTSIDE RECORDS SUMMARY | 2022-01-20 00:49 | XMS_ITS | Encounter Summary ---
:[address] [facility] Address [address] [place] [address] Care Team Providers Name Role Phone Unknown, Provider Primary Care Provider Encounter Details Date Type Department Care Team Description 10/30/2001 Results Only [facility] - Robert Medrano MD conversion [address] [place] [phone] Social History Tobacco Use Types Packs/Day Years Used Date Never Assessed Sex Assigned at Date Recorded Not on file documented as of this encounter Plan of Treatment Not on filedocumented as of this encounter Procedures Procedure Name Priority Date/Time Associated Diagnosis Comme [facility] SURGICAL PATHOLOGY Routine 10/30/2001 0:00 EDT Re sults for this procedure are i n the results section. documented in this encounter Results SURGICAL PATHOLOGY (10/30/2001 0:00 EDT) Pathology Report: SURGICAL PATHOLOGY REPORT [facility] Reports generated via electronic interface contain keturah ginal data; LAB however they are lacking the format of the original re port. Caution should be taken when reading/interpreting unfo rmatted reports. Name: ? RENETTA VAZQUEZ ? Accession #: ? [id number] ? : ? 1960 (Age: 41) ??F ? Collect Date: ? 10/30/2001 ? Location: ? [facility] ? Receive Date: ? 002 ? Provider: JAJA VALENTIN MD Copy to: KAREN AGUILAR MD ? Final Pathologic Diagnosis: A. ?Colon, 20 cm, biopsy: 1. ?Acellular debris only. ??See comment. 2. ?No epithelium identified. B. ?Colon, 10 cm, biopsy: 1. ?Fragment of hyperplastic polyp. Comment: ? Deeper sections of specimen (A) have been exami ahsan. ??(Dr. Barros)/[facility] Document reviewed and electronically signed by: Yaneli Barros MD Report ??Date: 11/02/2001 10:57 By the signature above, the attending physician certif ies that he/she has personally conducted a gross and/or microscopic examin ation of the described specimens and rendered or confirmed the above diagnosi s. Specimen(s) Received: A. ?Polyp at 20 cm (#1) B. ?Polyp at 10 cm (#2) Clinical History: ? Polyps Gross Description: ? Received in Hollande' s fixative labelled Gentry and #1 polyp at 20 cm are two kingsley-pink minute port ions of material measuring less than 0.1 x 0.1 x 0.1 cm and 0.2 x 0.1 x 0.1 cm. ??The materia l is grossly consistent with vegetable matter. ??No soft tissues ar e identified. ??The portions of vegetable material are submitted as (A). Container saved. Received in Hollande' s fixa tive labelled Gentry and #2 polyp at 10 cm is a kingsley-pink 0.3 x 0.2 x 0.2 cm soft tissue fragment. ??Th e specimen is entirely submitted as (B). ??(David Elena)/maldonado End of Report Specimen Performing Organization Address City/State/ZIP Code Phon e Number [facility] [address] [place] [address] SERVICES [facility] [address] [place] [address] documented in this encounter Visit Diagnoses Not on filedocumented in this encounter Care Teams Medical Office Supervisor Relationship Specialty Start Date End Date Unknown, Provider, PCP - General 04/29/09 09/13/10 documented as of this encounter
--- OUTSIDE RECORDS SUMMARY | 2022-01-20 00:49 | XMS_ITS | Encounter Summary ---
:1960 Author Organization [facility] Address [address] [place] [address] Care Team Providers Name Role Phone Unknown, Provider Primary Care Provider Encounter Details Date Type Department Care Team Description 09/10/2010 Results Only [facility] Celso Arauz , Laboratory Services - [address] YARI CADENA [address] [place], [place] [address] [place] [phone] Social History Tobacco Use Types Packs/Day Years Used Date Never Assessed Sex Assigned at Date Recorded Not on file documented as of this encounter Plan of Treatment Not on filedocumented as of this encounter Procedures Procedure Name Priority Date/Time Associated Diagnosis Comme [facility] SURGICAL PATHOLOGY Routine 09/10/2010 0:00 EST Re sults for this procedure are i n the results section. documented in this encounter Results SURGICAL PATHOLOGY (09/10/2010 0:00 EST) Pathology Report: SURGICAL PATHOLOGY REPORT ? [facility] Reports generated via electr Workbooks interface contain original data; ? LAB however they are lacking the format of the original report. ? Caution should be taken when reading/interpreting unformatted reports. ? Name: ? DEENA, RENETTA ? Accession #: ? [id number] ? : ? 1960 (Age: 50) ??F ? Collec t Date: ? 09/10/2010 ? Location: ? [facility] ? R eceive Date: ? 09/10/2010 ? Provider: CELSO CLAYTON SON DO ? Copy to: [facility] ? Final Pathologic Diagnosis: ? Rectum, polyp, biop sy: ? - Colorectal mucosa with no specific pathologic features. ??See comment. ? Comment: ? Deeper levels have be en examined. ??(Dr. Small)/[facility] ? Document reviewed and electr onically signed by: ? BRIT Currie BUTNOR MD ? Report ??Date: 09/14/2010 21 :02 ? By the signature above, the attending physician certifies that he/she has ? personally conducted a gross and/or microscopic examination of the described ? specimens and rendered or co nfirmed the above diagnosis. ? Specimen(s) Received: ? Bx rectum ? Clinical History: ? F/H colon polyps; ? t iny polyp in rectum 1 ??2 mm ? Gross Description: ? Received in Claudia' s fixative labelled Renetta Eric and biopsy rectum is a 0.2 x 0.2 x 0.2 cm tiss ue submitted in one cassette. ??(Dr. Vu)/[facility] ? End of Report ? Specimen Performing Organization Address City/[facility]/ZIP Code Phon e Number [facility] [address] [place] [address] SERVICES [facility] [address] [place] [address] documented in this encounter Visit Diagnoses Not on filedocumented in this encounter Care Teams Plant Associate Relationship Specialty Start Date End Date Unknown, Provider, PCP - General 04/29/09 documented as of this encounter
--- OUTSIDE RECORDS SUMMARY | 2022-01-20 00:49 | XMS_ITS | Encounter Summary ---
:1960 Author Organization [facility] Address [address] [place] [address] Care Team Providers Name Role Phone Unknown, Provider Primary Care Provider Encounter Details Date Type Department Care Team Description 05/01/2006 Results Only [facility] - Mirza Bazan FNP conversion [address] [place], [place] [address] [place] [address] [phone] (Wo rk) Social History Tobacco Use Types Packs/Day Years Used Date Never Assessed Sex Assigned at Date Recorded Not on file documented as of this encounter Plan of Treatment Not on filedocumented as of this encounter Procedures Procedure Name Priority Date/Time Associated Diagnosis Comme nts CYTOPATHOLOGY Routine 05/01/2006 0:00 EST Results for this procedure are i n the results section . documented in this encounter Results CYTOPATHOLOGY (05/01/2006 0:00 EST) Pathology Report: CYTOPATHOLOGY REPORT [facility] Reports generated via electronic interface contain keturah ginal data; however they are lacking the format of the original re port. Caution should be taken when reading/interpreting unfo rmatted reports. Name: ? RENETTA VAZQUEZ ? Accession #: ? [id number] : ? 1960 (Age: 45) ??F ?Collect Date: ? 04/04 Location: ? [facility] ? Receive Date : ? 05/03/2006 Provider: ?MIRZA HIRAM BODY BUMPER Copy to: ? Specimen/Source: ? ThinPrep Pap Test, Cervix/Endocervix, processed on Qwite ThinPrep Imaging System, with manual evaluation Last Menstrual Period: ? 04/17/06 Other: ? HPVA - HPV testing requested if ASC-US on the current ThinPrep Pap test. ? SPECIMEN ADEQUACY ? Satisfactory for Evaluation - transformation zone component present GENERAL CATEGORIZATION ? Negative for Intraepithelial Lesion or Malignan cy ? Document reviewed and electronically signed by: ? Charla Welsh, CHIQUITA(ASCP) ? Report Date: ??05/08/2006 12:08 End of Report Specimen Performing Organization Address City/State/ZIP Code Phon e Number [facility] [address] [place] [address] SERVICES [facility] [address] [place] [address] documented in this encounter Visit Diagnoses Not on filedocumented in this encounter Care Teams U.[place]. Senator Relationship Specialty Start Date End Date Unknown, Provider, PCP - General 04/29/09 09/13/10 documented as of this encounter
--- OUTSIDE RECORDS SUMMARY | 2022-01-20 00:49 | XMS_ITS | Clinical Summary ---
:1960 Author Organization [facility] Address [address] [place] [address] Care Team Providers Name Role Phone Radha Shukla Primary Care Provider Social History Tobacco Use Types Packs/Day Years Used Date Never Assessed Sex Assigned at Date Recorded Not on file Plan of Treatment Health Maintenance Due Date Last Done Comments COVID-19 Vaccine (1) 1971 Insurance Payer Benefit Plan Subscriber ID Effective Phone Address Typ e / Group Dates [employer] PLANS [id number] 2020-Prese [phone] [address] [employer] [address] [address] [address] [phone] [place], [place] (Work) [address] Care Teams Rn Float Relationship Specialty Start Date End Date Radha Shukla FNP PCP - General 09/14/10 [address] [place], [place] [phone]
--- OUTSIDE RECORDS SUMMARY | 2022-01-20 00:49 | XMS_ITS | Encounter Summary ---
:1960 Author Organization [facility] Address [address] [place] [address] Care Team Providers Name Role Phone Unknown, Provider Primary Care Provider Encounter Details Date Type Department Care Team Description 07/02/2007 Results Only [facility] - Mirza Bazan FNP conversion [address] [place] [address] [place], [place] [id number] [place] [address] [phone] (Wo rk) Social History Tobacco Use Types Packs/Day Years Used Date Never Assessed Sex Assigned at Date Recorded Not on file documented as of this encounter Plan of Treatment Not on filedocumented as of this encounter Procedures Procedure Name Priority Date/Time Associated Diagnosis Comme nts CYTOPATHOLOGY Routine 07/02/2007 0:00 EST Results for this procedure are i n the results section . documented in this encounter Results CYTOPATHOLOGY (07/02/2007 0:00 EST) Pathology Report: CYTOPATHOLOGY REPORT [facility] Reports generated via electronic interface contain keturah ginal data; however they are lacking the format of the original re port. Caution should be taken when reading/interpreting unfo rmatted reports. Name: ? RENETTA ERIC ? Accession #: ? [id number] : ? 1960 (Age: 47) ??F ?Collect Date: ? 06/04 Location: ? [facility] ? Receive Date : ? 07/05/2007 Provider: ?MIRZA HIRAM CISCO CONSULTANT Copy to: ? Specimen/Source: ? ThinPrep Pap Test, Cervix/Endocervix, processed on [employer] ThinPrep Imaging System, with manual evaluation Last Menstrual Period: ? 07/01/07 Other: ? Additional clinical information: Small Nabothian Cyst on portio at ~ 7:00. Menstrual blood coming out through os. HPVA - HPV testing requested if ASC-US on the current ThinPrep Pap test. ? SPECIMEN ADEQUACY ? Satisfactory for Evaluation - transformation zone component present GENERAL CATEGORIZATION ? Negative for Intraepithelial Lesion or Malignan cy ? Document reviewed and electronically signed by: ? SHANNAN Ignacio(ASCP) ? Report Date: ??07/06/2007 09:26 End of Report Specimen Performing Organization Address City/State/ZIP Code Phon e Number [facility] [address] [place] [address] SERVICES [facility] [address] [place] [address] documented in this encounter Visit Diagnoses Not on filedocumented in this encounter Care Teams Cupola Charger Relationship Specialty Start Date End Date Unknown, Provider, PCP - General 04/29/09 09/13/10 documented as of this encounter
--- OUTSIDE RECORDS SUMMARY | 2022-01-20 00:49 | XMS_ITS | Encounter Summary ---
:1960 Author Organization [facility] Address [address] [place] [address] Care Team Providers Name Role Phone Radha Shukla MOTEL FRONT DESK ATTENDANT Primary Care Provider Encounter Details Date Type Department Care Team Description 01/25/2021 Lab Requisition [facility] Brynn Felix for other Pathology & MD Nikole general examination Laboratory Medicine [address] [place], [place] [address] [phone] Social History Tobacco Use Types Packs/Day Years Used Date Never Assessed Sex Assigned at Date Recorded Not on file documented as of this encounter Plan of Treatment Not on filedocumented as of this encounter Procedures Procedure Name Priority Date/Time Associated Diagnosis Comme nts SURGICAL PATHOLOGY Today 01/25/2021 8:25 EDT Encounter for o ther Results for this general examination procedur e are in the results section. documented in this encounter Results SURGICAL PATHOLOGY (01/25/2021 8:25 EDT) Note to Patient The following [facility] pathology results CENTER have been interpreted LABORATORY by your pathologist SERVICES and may be available to you before your health provider has had the opportunity to review them. Please allow time for your provider to receive these results and explore management options, if applicable. Final Diagnosis A. SIGMOID COLON, BIOPSY: [facility] MEDICAL - Sessile serrated adenoma CENTER LABORATORY B. RECTUM, BIOPSY: SERVICES - Hyperplastic polyp with prolapse changes Attestation By the signature [facility] MEDICAL Electronica lly below, the attending CENTER signed by Lillie, physician certifies LABORATORY Ella Webster MD on that they have 1) SERVICES 01/27/2021 at 1315 personally conducted a gross and/or microscopic examination of the described specimen(s), and/or personally interpreted the results of laboratory testing of the described specimen(s), and 2) personally rendered or confirmed the above diagnosis. Clinical History Screening [facility] MEDICAL colonoscopy; family CENTER history colon cancer LABORATORY SERVICES Gross Description A. [facility] MEDICAL Received in formalin citlali d with proper patient identification (initials D, D) and sigmoid polyp is a single fragment of kingsley tissue (0.4 x 0.3 x 0.2 cm). The specimen is submitted in A1. CENTER LABORATORY B. SERVICES Received in formalin citlali d with proper patient identification (initials D, D) and rectal polyp are 5 fragments of kingsley tissue measuring 0.3 cm and 0.4 cm in greatest dimension. The specimens are submitted in B1. MADELIN LEE(ASC) 01/25/2021 15:53 Performing Lab [facility] SERVICES Scanned Images [facility] SERVICES Specimen Tissue - Specimen from rectum (specimen) Tissue specimen (specimen) - Specimen fr om rectum (specimen) Performing Organization Address City/State/ZIP Code Phon e Number [facility] [address] [place] [address] SERVICES documented in this encounter Visit Diagnoses Diagnosis Encounter for other general examination documented in this encounter Care Teams Trauma Counsellor Relationship Specialty Start Date End Date Radha Shukla FNP PCP - General 09/14/10 [address] [place], [place] [address] documented as of this encounter
--- OUTSIDE RECORDS SUMMARY | 2022-01-20 00:49 | XMS_ITS | Encounter Summary ---
:[address] [facility] Address [address] [place] [address] Care Team Providers Name Role Phone Radha Shukla MACHINE HEEL BUILDER Primary Care Provider Encounter Details Date Type Department Care Team Description 12/04/2019 Lab Requisition [facility] Outr Resulting Lab, Pathology & Laboratory Provider [facility] [address] [place] [address] Social History Tobacco Use Types Packs/Day Years Used Date Never Assessed Sex Assigned at Date Recorded Not on file documented as of this encounter Plan of Treatment Not on filedocumented as of this encounter Procedures Procedure Name Priority Date/Time Associated Comments Diagnosis DO NOT ORDER Today 12/04/2019 14:27 Results for this STANDALONE - BROAD EDT procedure are in COVID TEST the results section. COVID-19 TESTING Routine 12/04/2019 14:27 Results for this EDT procedure are i n the results section. documented in this encounter Results DO NOT ORDER STANDALONE - BROAD COVID TEST (12/04/2019 14:27 EDT) COVID-19 rt-PCR NEGATIVE Negative [facility] Result Comment: LABORATORY 2019-novel Coronavirus (2019 -nCoV) not detected by the qRT-PCR assay. Consider testing for other respiratory viruses or re-collecting for 2019-nCoV testing. Note: Optimum timing for peak viral levels du ring infections caused by 20 19-nCoV have not been determined. Collection of multiple specimens from the same patient may be necessary to detect the virus. Limitations Positive results are indicat tisha of active infection with SARS-CoV-2 but do not rule out bacterial infection or co-infection with other viruses. The agent detected may not be the definite cause of diseas e. In addition, detection of viral RNA may not indicate the presence of infectious virus or that SARS-CoV-2 is the causative agent for clinical symptoms. Negative results do not prec lude SARS-CoV-2 infection and should not be used as the sole basis for patient management decisions. Negative results must be combined with clinical observations, patient his tory, and epidemiological in formation. False negative results may also occur if amplification inhibitors are present in the specimen or if inadequate numbers of organisms are present in the specimen. Op timum specimen types and cristina ing for peak viral levels during infections caused by SARS-CoV-2 have not been fully determined. Collection of multiple specimens (types and time points) from the same patient may be necessary to detect the virus. The test was validated for u se with upper respiratory specimens obtained via nasopharyngeal or oropharyngeal swabs in VTM, UTM, M4, M5, M6, saline, and MTM media. The performance of this test has not be en established for other spe cimens. Specimens collected using other FDA recommended Specimen Collection Materials listed in the FDA COVID-19 [employer] communication (September 26, 2019) are pr ocessed with the caveat that they were not all validated for use with this test and the result must be interpreted in this context. Furthermore, a false negative results may occur if a specimen is improperly collected, transported or handled. If the virus mutates in the RT-PCR target region, SARS-CoV-2 may not be detected or may be detected less predictably. Inhibitors or other types of interference may produce a false negative result. An interference study evaluating the effect of common cold medications was not performed. This test is not FDA-cleared but its performance characteristics were established by our CLIA-certified, CAP-accredited, high complexity laboratory in accordance with CLIA regulations, College of [employer] an Pathologists (CAP) guidel sherri (Sep 19, 2019), and FDA guidance (Aug 31, 2019). This test is only for use un james the Food and Drug Administration's Emergency Use Authorization. Specimen Swab - Entire nasopharynx (body structur e) Performing Organization Address City/State/ZIP Code Phon e Number [facility] [place], [place] COVID-19 TESTING (12/04/2019 14:27 EDT) COVID-19 rt-PCR NEGATIVE Negative [facility] Result Comment: LABORATORY 2019-novel Coronavirus (2019 -nCoV) not detected by the qRT-PCR assay. Consider testing for other respiratory viruses or re-collecting for 2019-nCoV testing. Note: Optimum timing for peak viral levels du ring infections caused by 20 -nCoV have not been determined. Collection of multiple specimens from the same patient may be necessary to detect the virus. Limitations Positive results are indicat tisha of active infection with SARS-CoV-2 but do not rule out bacterial infection or co-infection with other viruses. The agent detected may not be the definite cause of diseas e. In addition, detection of viral RNA may not indicate the presence of infectious virus or that SARS-CoV-2 is the causative agent for clinical symptoms. Negative results do not prec lude SARS-CoV-2 infection and should not be used as the sole basis for patient management decisions. Negative results must be combined with clinical observations, patient his tory, and epidemiological in formation. False negative results may also occur if amplification inhibitors are present in the specimen or if inadequate numbers of organisms are present in the specimen. Op timum specimen types and cristina ing for peak viral levels during infections caused by SARS-CoV-2 have not been fully determined. Collection of multiple specimens (types and time points) from the same patient may be necessary to detect the virus. The test was validated for u with upper respiratory specimens obtained via nasopharyngeal or oropharyngeal swabs in VTM, UTM, M4, M5, M6, saline, and MTM media. The performance of this test has not be en established for other spe cimens. Specimens collected using other FDA recommended Specimen Collection Materials listed in the FDA COVID-19 [employer] communication (September 26, 2019) are pr ocessed with the caveat that they were not all validated for use with this test and the result must be interpreted in this context. Furthermore, a false negative results may occur if a specimen is improperly collected, transported or handled. If the virus mutates in the RT-PCR target region, SARS-CoV-2 may not be detected or may be detected less predictably. Inhibitors or other types of interference may produce a false negative result. An interference study evaluating the effect of common cold medications was not performed. This test is not FDA-cleared but its performance characteristics were established by our CLIA-certified, CAP-accredited, high complexity laboratory in accordance with CLIA regulations, College of [employer] an Pathologists (CAP) guidel sherri (Sep 19, 2019), and FDA guidance (Aug 31, 2019). This test is only for use un james the Food and Drug Administration's Emergency Use Authorization. Performing Lab [facility] LABORATORY SERVICES Specimen Swab - Entire nasopharynx (body structur e) Performing Organization Address City/State/ZIP Code Phon e Number [facility] [address] [place] [address] SERVICES [facility] [place], [place] documented in this encounter Visit Diagnoses Not on filedocumented in this encounter Care Teams Linux Unix Engineer Relationship Specialty Start Date End Date Radha Shukla FNP PCP - General 09/14/10 [address] [place], [place] [phone] documented as of this encounter
--- OUTSIDE RECORDS SUMMARY | 2022-01-20 00:49 | XMS_ITS | Encounter Summary ---
:1960 Author Organization [facility] Address [address] [place] [address] Care Team Providers Name Role Phone Unknown, Provider Primary Care Provider Encounter Details Date Type Department Care Team Description 07/20/2006 Results Only [facility] - Anton Harrison MD Maple conversion [address] [place] [address] [place] [address] Social History Tobacco Use Types Packs/Day Years Used Date Never Assessed Sex Assigned at Date Recorded Not on file documented as of this encounter Plan of Treatment Not on filedocumented as of this encounter Procedures Procedure Name Priority Date/Time Associated Diagnosis Comme [facility] SURGICAL PATHOLOGY Routine 07/20/2006 0:00 EST Re sults for this procedure are i n the results section. documented in this encounter Results SURGICAL PATHOLOGY (07/20/2006 0:00 EST) Pathology Report: SURGICAL PATHOLOGY REPORT [facility] Reports generated via electronic interface contain keturah ginal data; LAB however they are lacking the format of the original re port. Caution should be taken when reading/interpreting unfo rmatted reports. Name: ? RENETTA VAZQUEZ ? Accession #: ? [id number] ? : ? 1960 (Age: 46) ??F ? Collect Date: ? 07/20/2006 ? Location: ? [facility] ? Receive Date: ? 007 ? Provider: JOSHUA HARRISON MD Copy to: MIRZA GANDHI FINISH OPENER ? Final Pathologic Diagnosis: ? Endometrium, curettage: 1. ?Fragments o f late secretory-phase and menstrual-pattern endometrium. 2. ? Fragment consistent with endometrial polyp. 3. ? No hyperplasia or cytologic atypia identified . Document reviewed and electronically signed by: KAREN DEJESUS MD Report ??Date: 07/24/2006 21:07 By the signature above, the attending physician certif ies that he/she has personally conducted a gross and/or microscopic examin ation of the described specimens and rendered or confirmed the above diagnosi s. Specimen(s) Received: ? Endometrial curettings Clinical History: ? Menorrhagia, LMP: 07/20/06 Gross Description: ? Received in formalin labelled [place] and endometrial curettings is a 3.0 x 1.5 x 0.6 cm aggregate of kingsley and brown soft tissue admixed with a small amount of brown-tinged mucin ous material which is entirely submitted as (A1) and (A2). ??(Clarke Coyne[facility] End of Report Specimen Performing Organization Address City/State/ZIP Code Phon e Number [facility] [address] [place] [address] SERVICES [facility] [address] [place] [address] documented in this encounter Visit Diagnoses Not on filedocumented in this encounter Care Teams Insulation Board Back Tender Relationship Specialty Start Date End Date Unknown, Provider, PCP - General 04/29/09 09/13/10 documented as of this encounter
--- OUTSIDE RECORDS SUMMARY | 2022-01-20 00:49 | XMS_ITS | Encounter Summary ---
:1960 Author Organization [facility] Address [address] [place] [address] Care Team Providers Name Role Phone Mirza Shukla Primary Care Provider Encounter Details Date Type Department Care Team Description 10/08/2013 Results Only [facility] Mirza Shukla FNP Laboratory Services - [facility] [address] [address] [place], [place] [id number] [phone] Social History Tobacco Use Types Packs/Day Years Used Date Never Assessed Sex Assigned at Date Recorded Not on file documented as of this encounter Plan of Treatment Not on filedocumented as of this encounter Procedures Procedure Name Priority Date/Time Associated Diagnosis Comme nts PAP TEST- RESULT Routine 10/08/2013 0:00 EDT Resu lts for this ONLY procedure are i n the results section. documented in this encounter Results PAP TEST- RESULT ONLY (10/08/2013 0:00 EDT) Pathology Report: CYTOPATHOLOGY REPORT [facility] Reports generated via electronic interface contain keturah ginal data; however they are lacking the format of the original re port. Caution should be taken when reading/interpreting unfo rmatted reports. Name: ? RENETTA ERIC ? Accession #: ? [id number] ? : ? 1960 (Age: 53) ??F ?Collect Da te: ? 10/08/2013 ? Location: ? [facility] ? Receive Date: ? 014 ? Provider: MIRZA SHUKLA NUTRITION CLUB AMBASSADOR Copy to: ? Final Report SPECIMEN ADEQUACY ? Satisfactory for Evaluation - transformation zone component absent GENERAL CATEGORIZATION ? Negative for Intraepithelial Lesion or Malignan cy ?? Last Menstrual Period: 07/22/2013 Specimen/Source: ??Pap Test, Cervix/Endocervix, ThinPr ep Imaging System with manual evaluation Document reviewed and electronically signed by: ? SHANNAN Carrizales(ASCP) ? Report ??Date: 10/15/2013 14:34 HPV with Pap Test ? Date Ordered: ? 10/15/2013 ? Status: ?? Signed Out ?Date Complete: ? 10/17/2013 ? By: ??S ystem Interface ? Date Reported: ? 10/17/2013 ? Interpretation RESULT: Negative for HPV. No E6 or E7 mRNA is detected from HPV types 16,18,31,3 3,35, 39,45,51,52,56,58,59,66, and 68 by sqe media nasir amplification. Comments Document reviewed and electronically signed by: ? System Interface ? Report date: 10/17/2013 By the signature above, the attending physician certif ies that he/she has personally conducted a gross and/or microscopic examin ation of the described specimens and rendered or confirmed the above diagnosi s. End of Report Specimen Performing Organization Address City/State/ZIP Code Phon e Number [facility] [address] [place] [address] SERVICES [facility] [address] [place] [address] documented in this encounter Visit Diagnoses Not on filedocumented in this encounter Care Teams Hand Packer/Packager Relationship Specialty Start Date End Date Mirza Shukla FNP PCP - General 09/14/10 [address] [place], [place] [phone] documented as of this encounter
--- OUTSIDE RECORDS SUMMARY | 2022-01-20 00:49 | XMS_ITS | Encounter Summary ---
:1960 Author Organization [facility] Address [address] [place] [address] Care Team Providers Name Role Phone Radha Shukla Primary Care Provider Encounter Details Date Type Department Care Team Description 02/24/2016 Hospital Encounter [facility]- [place] Unknown, Provider, [facility] [address] [facility] [phone] [place] [address] (Work) [phone] Social History Tobacco Use Types Packs/Day Years Used Date Never Assessed Sex Assigned at Date Recorded Not on file documented as of this encounter Discharge Disposition Disposition Code Departure Means Destination Home or Self Longterm documented in this encounter Plan of Treatment Not on filedocumented as of this encounter Visit Diagnoses Not on filedocumented in this encounter Care Teams Long Wall Mining Machine Helper Relationship Specialty Start Date End Date Radha Shukla FNP PCP - General 09/14/10 [address] [place] [address] documented as of this encounter
--- NOTE | 2022-01-20 16:00 | DI.MAMMO_ITS ---
Exam(s) MAMMO SCREENING EXAM: MAMMO SCREENING CLINICAL HISTORY: SCREENING, Z12.31. TECHNIQUE: Bilateral full field digital CC and MLO mammographic images were obtained with 3D tomosyn thesis and utilizing computer aided detection (CAD). COMPARISON: Prior mammograms were reviewed, the most recent being September 2019. FINDINGS: There has been no significant change in the appearance and distribution of the fibroglandular tissue. This is again noted be moderately dense. Some asymmetric tissue medially in the left breast is unchanged from prior studies. There are no new spiculated masses nor malignant appearing microcalcification groups. There is no significant architectural distortion nor skin thickening-retraction. IMPRESSION: No radiographic evidence of malignancy. BI-RADS Category 1 - Negative Breast Density - Category C - Heterogeneously dense Breast density Category C or D implies that the patient has dense breast tissue. Dense breast tissue can make it harder to find cancer on a mammogram. Dense breast tissue is also associated with an incr eased risk of breast cancer. This information about the result of the mammogram report was provided to the patient to raise their awareness. Use this report when you speak with the patient about their risks for breast cancer, which includes their family history. At that time, you may recommend additional screening tests (Ultrasoun d or MRI) as these tests may add significant information. A negative radiographic report should not delay biopsy if a dominant or clinically suspicious mass is present. Up to ten percent of cancers are not identified on mammography. A negative report may reinforce clinical impression. Adenosis and dense breasts may obscure an underlying neoplasm. False positive reports average 6 to 10%. Patient will receive a letter notifying them of these results.
== END ==
PROVIDERS: PCP Nurse Practitioner Family; Visit Provider Nurse Practitioner Family
DX: Z12.31 Encounter for screening mammogram for malignant neoplasm of breast (principal)
CPT/HCPCS: 77063; 77067

== ENCOUNTER 2022-07-14 15:24 | Outpatient (CLI) | payer OTHER, SELFPAY ==
[2022-07-14 17:00] LABS: TSH (W/Ref FT4) 1.04 uIU/mL (0.36-3.74); Vitamin B12 532 pg/mL (193-986)
== END 2022-07-14 15:25 | disposition home or self-care (01) ==
LOC: LBO 15:24
PROVIDERS: PCP Nurse Practitioner Family; Visit Provider Nurse Practitioner Family
DX: R41.3 Other amnesia (principal); F43.23 Adjustment disorder with mixed anxiety and depressed mood; R51.9 Headache, unspecified; R73.03 Prediabetes
CPT/HCPCS: 36415; 82607; 84443

== ENCOUNTER 2023-03-13 17:21 | Emergency (ER) | payer OTHER, SELFPAY ==
[2023-03-13 17:24] VITALS: BP 129/73; PULSE 68; RESP 14; TEMP 36.9; O2SAT 98
--- NOTE | 2023-03-13 18:45 | DI.RAD_ITS ---
Exam(s) XR ANKLE LT COMPLETE EXAM: XR ANKLE LT COMPLETE CLINICAL HISTORY: left ankle pain TECHNIQUE: 2D digital imaging was performed. Three views. COMPARISON: No exams were available for comparison FINDINGS: BONES: No acute fracture is present. No bony destructive lesion is seen. Tiny heel spur. JOINTS:The ankle mortise is normally aligned. SOFT TISSUE: Swelling IMPRESSION: No acute bony abnormality. DATA REPOSITORY: RADIATION DOSE DELIVERED:
--- NOTE | 2023-03-13 19:53 | DI.VRAD_ITS ---
PROCEDURE INFORMATION: Exam: XR Left Ankle Exam date and time: 03/13/2023 7:21 PM Age: 62 years old Clinical indication: Patient HX: Left ankle pain TECHNIQUE: Imaging protocol: Radiologic exam of the left ankle. Views: 3 or more views. COMPARISON: CR XR FOOT LT COMPLETE 06/23/2021 3:13 PM FINDINGS: Bones/joints: Osseous alignment is normal. No acute fracture. No arthritic change. Mild plantar enthesophyte formation of the calcaneus. Soft tissues: Normal. IMPRESSION: No acute abnormality Dictated and Authenticated by: Vinny Khalil MD. Ordering:NIRAJ Bass MD
--- NOTE | 2023-03-13 20:34 | NUR.NOTE ---
Sent home discharge paper, pt had left paper work behind.
--- NOTE | 2023-03-13 22:10 | ED.GENADUL_ITS ---
Discharge Plan Disposition Patient Disposition: Home Discharge Details Clinical Impression: Ankle strain Primary Care Provider: Tiff Landaverde ED Provider: Shelia Biswas Home Meds and New Rx's Prescriptions: Continued bupropion HCl [Wellbutrin XL] 300 MG tablet extended release 24 hr 300 mg PO DAILY Patient Comments: not taking acetaminophen [Tylenol Extra Strength] 500 mg tablet 1,000 mg PO Q6H PRN fluticasone propionate [Flovent HFA] 110 mcg/actuation HFA aerosol inhaler 2 puff inhalation PRN Rx Instructions: 2 puffs one hour prior to exercise albuterol sulfate [ProAir HFA] 90 mcg/actuation HFA aerosol inhaler 1 - 2 puff inhalation .Q4-6H PRN melatonin-lemon balm leaf extr 10-1 mg tablet 1 tab PO QHS Glucoten 1 EACH tablet 2 tab PO DAILY Patient Comments: not taking Discharge Instructions Additional Instructions: Ibuprofen and Tylenol as needed for pain Wear your boot as tolerated for comfort Weightbearing as tolerated Repeat x-ray in 1 week with persistent pain Return earlier should you have new or worsening complaints Stand Alone Forms: Work Release Referrals: Tiff Landaverde [Primary Care Provider] - Discharge Data Discharge Date/Time-TO BE ENTERED AT DEPARTURE: 03/13/23 19:58 Medical Decision Making 62-year-old female presenting with left ankle pain, tenderness to left lateral malleolus, x-rays ordered for further evaluation X-ray does not show evidence of acute abnormality per radiology interpretation and my review Placed in a boot for comfort Work note supplied Return precautions reviewed and patient expressed understanding Ibuprofen and Tylenol as needed for pain HPI General Date/Time Provider Initiated Documentation: 03/13/23 18:05 . HPI Narrative: This 62-year-old female presents with report of injury, slipped on a rock in the stream today. States she was able to walk after but now has pain to left ankle. Denies any additional injuries. Related Data Home Medications Medication Instructions Recorded Confirmed bupropion HCl 300 mg 24 hr tablet, 300 mg PO DAILY 02/08/16 07/26/22 extended release (Wellbutrin XL) hionkungowz-dcmskkwuejm-di-mineral#3 2 tab PO DAILY 02/24/16 07/26/22 375 mg-300 mg-25 mg-0.5 mg tablet (Glucoten) acetaminophen 500 mg tablet 1,000 mg PO Q6H PRN 12/22/20 03/13/23 (Tylenol Extra Strength) albuterol sulfate 90 mcg/actuation 1 - 2 puff inhalation .Q4-6H PRN 07/08/22 03/13/23 aerosol inhaler (ProAir HFA) fluticasone propionate 110 2 puff inhalation PRN 07/08/22 03/13/23 mcg/actuation HFA aerosol inhaler (Flovent HFA) melatonin 10 mg-lemon balm leaf 1 tab PO QHS 07/08/22 03/13/23 extract 1 mg tablet Allergies Allergy/AdvReac Type Severity Reaction Status Date / Time NSAIDS (Non-Steroidal Allergy Verified 03/13/23 18:38 Anti-Inflamma ibuprofen AdvReac Diarrhea Verified 03/13/23 18:38 General Stated Complaint: Orthopedic MOY: 4 PFSH All Active Problems (Updated 03/13/23 @ 19:37 by MADELIN Hernandez) Encounter for screening for other viral diseases (Acute) Family history of colon cancer (Acute) Screening for colon cancer (Acute) Prediabetes (Acute) Chronic headaches (Acute) COPD (chronic obstructive pulmonary disease) (Chronic) Insomnia (Acute) Former smoker (Acute) Memory impairment (Acute) Adjustment disorder (Chronic) Stress incontinence (Acute) Serrated adenoma of colon (Acute ~01/2021) Colon polyp, hyperplastic (Acute ~01/2021) x5 Mild cognitive impairment (Acute) Ankle strain (Acute) Medical History Depression Family hx colonic polyps Headache Heel pain History of depression History of prediabetes IBS (irritable bowel syndrome) Low back pain Vasomotor symptoms due to menopause Surgical History Colonoscopy - IV Sedation (02/24/16) History of colonoscopy (~01/2021) Family History Sister Colon cancer Social History Smoking/Tobacco Use Status: Former Tobacco Use Smoking risk assessment performed?: Yes Alcohol Intake: current Alcohol Intake frequency: a few times a month Alcohol type: wine Drug use: Never Substance use type: does not use Do you feel safe at home: Yes Do you feel safe in your relationship?: Yes Course Vital Signs Vital signs: Vital Signs Temperature 36.9 C 03/13/23 17:24 Pulse 68 03/13/23 17:24 Respiratory Rate 14 03/13/23 17:24 Blood Pressure 129/73 03/13/23 17:24 Pulse Oximetry 98 03/13/23 17:24 Temperature 36.9 C 03/13/23 17:24 Temperature Source Skin 03/13/23 17:24 Pulse 68 03/13/23 17:24 Respiratory Rate 14 03/13/23 17:24 Respiratory Effort Normal, Non-Labored 03/13/23 18:34 Blood Pressure 129/73 03/13/23 17:24 Blood Pressure Position Sitting 03/13/23 17:24 Pulse Oximetry 98 03/13/23 17:24 Oxygen Delivery Method Room Air 03/13/23 17:24 Oxygen Flow Rate 0 03/13/23 17:24 Pain Level 5 03/13/23 17:24 Comment ice and tylenol 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 03/13/23 17:24 PAWSS Have you Been Recently Intoxicated or Drunk Within the Last 30 days?: No Have you Ever Experienced Previous Episodes of Alcohol Withdrawal?: No Have you ever Experienced Withdrawal Seizures?: No Have you ever Experienced Delirium Tremens(DT)s?: No Have you ever undergone Alcohol Rehabilitation Treatment (i.e, inpt ot outpatient treatment programs)?: No Have you ever Experienced Blackouts?: No Have you ever Combined Alcohol with other Downers within the last 90 days?: No Have you ever Combined Alcohol with any other Substance of Abuse during the last 90 days?: No Positive Blood Alcohol level on Presentation? [PCS.BAL]: No Evidence of Increased Autonomic Activity (i.e. HR>120, tremor, sweating, agitation, nausea)?: No Result: 0
--- NOTE | 2023-03-14 07:09 | NUR.NOTE ---
Opened chart to obtain diagnosis for Ortho document for billing purposes. Nursing Note:
== END 2023-03-13 19:58 | disposition home or self-care (01) ==
PROVIDERS: Emergency Provider Physician Assistant; PCP Nurse Practitioner Family
DX: S93.402A Sprain of unspecified ligament of left ankle, initial encounter (principal); W01.0XXA Fall on same level from slipping, tripping and stumbling without subsequent striking against object, initial encounter
CPT/HCPCS: 99283; 73610

== ENCOUNTER 2023-03-20 14:29 | Outpatient (REF) | payer OTHER, SELFPAY ==
[2023-03-20 15:41] LABS: Hemoglobin A1C 6.2 % (<5.7)
[2023-03-20 16:02] LABS: Calculated LDL 63 mg/dL (<100); Cholesterol 156 mg/dL (<200); HDL Cholesterol 82 mg/dL (40-60); Triglyceride 58 mg/dL (<150)
== END 2023-03-20 14:30 | disposition home or self-care (01) ==
LOC: NCHCN 14:29
PROVIDERS: PCP Nurse Practitioner Family; Visit Provider Nurse Practitioner Family
DX: R73.03 Prediabetes (principal); F32.89 Other specified depressive episodes; G47.00 Insomnia, unspecified; R51.9 Headache, unspecified; K58.9 Irritable bowel syndrome, unspecified; Z13.220 Encounter for screening for lipoid disorders
CPT/HCPCS: 80061; 83036

== ENCOUNTER 2023-05-02 17:02 | Emergency (ER) | payer OTHER, SELFPAY ==
--- NOTE | 2023-05-02 17:00 | DI.RAD_ITS ---
Exam(s) XR WRIST LT COMPLETE EXAM: XR WRIST LT COMPLETE CLINICAL HISTORY: fall. TECHNIQUE: 2D digital imaging was performed. Three views. COMPARISON: No exams were available for comparison FINDINGS: BONES: Comminuted intra-articular fracture of the distal radius. The main fracture component extends transversely through the metaphysis. Additional fracture extends in the coronal plane through the p osterior aspect of the distal radius to the articular surface. There is a few millimeters of separat ion at the articular surface. There is slight impaction. No significant angulation. The distal uln a and carpal bones appear intact. No bony destructive lesion is seen. JOINTS: The carpal bones are normally aligned. SOFT TISSUE: Swelling around carpal region. IMPRESSION: Comminuted inter articular fracture distal radius. DATA REPOSITORY: RADIATION DOSE DELIVERED:
[2023-05-02 17:07] VITALS: BP 156/75; PULSE 89; RESP 20; TEMP 36.8; O2SAT 99
--- NOTE | 2023-05-02 17:30 | ED.GENADUL_ITS ---
Discharge Plan Disposition Patient Disposition: Home Condition: Stable Discharge Details Primary Care Provider: Tiff Landaverde ED Provider: Ria Jones Home Meds and New Rx's Prescriptions: Continued bupropion HCl [Wellbutrin XL] 300 MG tablet extended release 24 hr 300 mg PO DAILY Patient Comments: not taking acetaminophen [Tylenol Extra Strength] 500 mg tablet 1,000 mg PO Q6H PRN fluticasone propionate [Flovent HFA] 110 mcg/actuation HFA aerosol inhaler 2 puff inhalation PRN Rx Instructions: 2 puffs one hour prior to exercise albuterol sulfate [ProAir HFA] 90 mcg/actuation HFA aerosol inhaler 1 - 2 puff inhalation .Q4-6H PRN melatonin-lemon balm leaf extr 10-1 mg tablet 1 tab PO QHS Glucoten 1 EACH tablet 2 tab PO DAILY Patient Comments: not taking Discharge Instructions Instructions: Wrist Fracture in Adults (ED) Additional Instructions: Wear the splint continuously only take off to bathe. Rest ice compression elevation. Keep it above the level of your heart while sitting or laying down. Please take Tylenol with food every 4-6 hours as needed for pain and swelling. Follow-up with orthopedics as discussed for further eval and care. Stand Alone Forms: Work Release Referrals: Tacho Clifton MD [ [facility] STAFF PHYSICIAN] - 1 week (Call tomorrow to make an appointment) Discharge Data Discharge Date/Time-TO BE ENTERED AT DEPARTURE: 05/02/23 18:37 Medical Decision Making 62-year-old female presents to the ER with chief complaint of left wrist pain and swelling after a fall prior to arrival. Patient was hiking when her dog knocked her over. Her arm went behind her. She landed on her bottom. Denies any LOC or hitting her head no neck or back pain. She does have some swelling noted to her left wrist radial pulses intact distal CMS intact. Cap refill is approximately 3 seconds. She did have ice prior to arrival. She took a gram of Tylenol at 4 PM. Does not take any blood thinners. Past medical history includes depression prediabetes IBS, COPD she is a former smoker. X-ray of left wrist ordered by staff nuclear weapons officer in triage. Offered analgesic patient reports that she already took Tylenol prior to arrival. X-ray shows a comminuted intra-articular fracture of the left distal radius. Patient placed in a thumb spica wrist splint and put on the orthopedic follow-up list. Patient was given a sling for comfort. Instructed on home care. Offered stronger analgesic other than Tylenol which patient declined at this time. Patient given a work note to be off for the next 2 weeks until cleared by orthopedics. This text was generated using [employer] dictation system, please disregard any oddities of phrase or misspellings. Imaging Data Radiologic Study: Imaging: X-Ray Radiologist's impression: EXAM: XR WRIST LT COMPLETE CLINICAL HISTORY: fall. TECHNIQUE: 2D digital imaging was performed. Three views. COMPARISON: No exams were available for comparison FINDINGS: BONES: Comminuted intra-articular fracture of the distal radius. The main fracture component extends transversely through the metaphysis. Additional fracture extends in the coronal plane through the posterior aspect of the distal radius to the articular surface. There is a few millimeters of separation at the articular surface. There is slight impaction. No significant angulation. The distal ulna and carpal bones appear intact. No bony destructive lesion is seen. JOINTS: The carpal bones are normally aligned. SOFT TISSUE: Swelling around carpal region. IMPRESSION: Comminuted inter articular fracture distal radius. HPI General Mode of arrival: ambulatory . Date/Time Provider Initiated Documentation: 05/02/23 17:30 . Limitations to Documentation: no limitations . Information obtained by: patient, RN notes reviewed and old records reviewed . HPI Narrative: 62-year-old female presents to the ER with chief complaint of left wrist pain and swelling after a fall prior to arrival. Patient was hiking when her dog knocked her over. Her arm went behind her. She landed on her bottom. Denies any LOC or hitting her head no neck or back pain. She does have some swelling noted to her left wrist radial pulses intact distal CMS intact. Cap refill is approximately 3 seconds. She did have ice prior to arrival. She took a gram of Tylenol at 4 PM. Does not take any blood thinners. Past medical history includes depression prediabetes IBS, COPD she is a former smoker. Related Data Home Medications Medication Instructions Recorded Confirmed bupropion HCl 300 mg 24 hr tablet, 300 mg PO DAILY 02/08/16 05/02/23 extended release (Wellbutrin XL) fudkxkhlitd-etfnzpefsbm-jm-mineral#3 2 tab PO DAILY 02/24/16 05/02/23 375 mg-300 mg-25 mg-0.5 mg tablet (Glucoten) acetaminophen 500 mg tablet 1,000 mg PO Q6H PRN 12/22/20 05/02/23 (Tylenol Extra Strength) albuterol sulfate 90 mcg/actuation 1 - 2 puff inhalation .Q4-6H PRN 07/08/22 05/02/23 aerosol inhaler (ProAir HFA) fluticasone propionate 110 2 puff inhalation PRN 07/08/22 05/02/23 mcg/actuation HFA aerosol inhaler (Flovent HFA) melatonin 10 mg-lemon balm leaf 1 tab PO QHS 07/08/22 05/02/23 extract 1 mg tablet Allergies Allergy/AdvReac Type Severity Reaction Status Date / Time NSAIDS (Non-Steroidal Allergy Verified 05/02/23 17:12 Anti-Inflamma ibuprofen AdvReac Diarrhea Verified 05/02/23 17:12 General Stated Complaint: Orthopedic MOY: 3 Review of Systems All systems reviewed & are unremarkable except as noted in HPI and below ENT Ears, Nose, Mouth, and Throat: Denies neck pain Musculoskeletal Musculoskeletal: Reports as per HPI, Denies back pain, Reports arthralgias (Left wrist), Reports joint swelling, Reports limited range of motion and Denies neck pain PFSH All Active Problems Mild cognitive impairment (Acute) Colon polyp, hyperplastic (Acute ~01/2021) x5 Serrated adenoma of colon (Acute ~01/2021) Stress incontinence (Acute) Adjustment disorder (Chronic) Memory impairment (Acute) Former smoker (Acute) Insomnia (Acute) COPD (chronic obstructive pulmonary disease) (Chronic) Chronic headaches (Acute) Prediabetes (Acute) Screening for colon cancer (Acute) Family history of colon cancer (Acute) Encounter for screening for other viral diseases (Acute) Medical History Family hx colonic polyps History of depression Headache History of prediabetes Vasomotor symptoms due to menopause Low back pain Heel pain IBS (irritable bowel syndrome) Depression Surgical History History of colonoscopy (~01/2021) Colonoscopy - IV Sedation (02/24/16) Family History Sister Colon cancer Social History Smoking/Tobacco Use Status: Former Tobacco Use Smoking risk assessment performed?: Yes Alcohol Intake: current Alcohol Intake frequency: a few times a month Alcohol type: wine Drug use: Never Substance use type: does not use Do you feel safe at home: Yes Do you feel safe in your relationship?: Yes Exam Narrative Exam Narrative: General: Well Developed, Awake and Alert, conversant. Skin: Warm and Dry HEENT: Head: No palpable deformities, Normocephalic Eyes: Pupils PERRLA, EOM's intact. No periorbital eccymosis or step off Mouth/Throat: No intraoral trauma. Teeth and mandible are intact. Neck: No midline tenderness, no step off, no deformity to palpation of C-spine. Trachea midline. Chest: No surface trauma. Nontender without crepitus or deformity. Lungs clear to ausculatation bilaterally. Heart: RRR, no rubs, murmurs or gallop. Extremities: no surface trauma. Sensation intact. Peripheral pulses intact and equal. Left wrist swelling tenderness and decreased joint movement. Neuro: ANO x4, GCS 15, cranial nerves II through XII intact. Motor and sensory exam nonfocal. Course Vital Signs Vital signs: Vital Signs Temperature 36.8 C 05/02/23 17:07 Pulse 89 05/02/23 17:07 Respiratory Rate 20 05/02/23 17:07 Blood Pressure 156/75 H 05/02/23 17:07 Pulse Oximetry 99 05/02/23 17:07 Temperature 36.8 C 05/02/23 17:07 Temperature Source Oral 05/02/23 17:07 Pulse 89 05/02/23 17:07 Respiratory Rate 20 05/02/23 17:07 Respiratory Effort Normal 05/02/23 17:10 Blood Pressure 156/75 H 05/02/23 17:07 Blood Pressure Position Sitting 05/02/23 17:07 Pulse Oximetry 99 05/02/23 17:07 Oxygen Delivery Method Room Air 05/02/23 17:07 Oxygen Flow Rate 0 05/02/23 17:07 Pain Level 6 05/02/23 17:07
== END 2023-05-02 18:37 | disposition home or self-care (01) ==
PROVIDERS: Emergency Provider Registered Nurse Emergency; PCP Nurse Practitioner Family
DX: S52.572A Other intraarticular fracture of lower end of left radius, initial encounter for closed fracture; W18.30XA Fall on same level, unspecified, initial encounter; W54.1XXA Struck by dog, initial encounter; Y93.01 Activity, walking, marching and hiking; J44.9 Chronic obstructive pulmonary disease, unspecified
CPT/HCPCS: 29125; 99283; 73110

== ENCOUNTER 2023-05-09 09:57 | Outpatient (CLI) | payer OTHER, SELFPAY ==
--- NOTE | 2023-05-09 09:30 | DI.RAD_ITS ---
Exam(s) XR WRIST LT LIMITED EXAM: XR WRIST LT LIMITED CLINICAL HISTORY: radial fx f/u. TECHNIQUE: 2D digital imaging was performed. COMPARISON: CR XR WRIST LT COMPLETE from 05/02/2023 FINDINGS: Again noted is a previously described fracture of the distal radius which exhibits both transverse an d oblique components and which reaches the articular surface of the radiocarpal joint. Appearance is unchanged from 05/02/2023. There is no significant ulnar variance. Ulnar styloid appears unremarka ble. Scaphoid and scapholunate distance are normal. IMPRESSION: Distal radius fracture appears unchanged from 05/02/2023. DATA REPOSITORY: RADIATION DOSE DELIVERED:
== END 2023-05-09 09:58 | disposition home or self-care (01) ==
LOC: DIORS 09:57
PROVIDERS: PCP Nurse Practitioner Family; Visit Provider Student in an Organized Health Care Education/Training Program
DX: S52.352D Displaced comminuted fracture of shaft of radius, left arm, subsequent encounter for closed fracture with routine healing (principal); X58.XXXD Exposure to other specified factors, subsequent encounter
CPT/HCPCS: 73100

== ENCOUNTER 2023-05-11 10:58 | Day surgery (SDC) | payer OTHER, SELFPAY ==
[2023-05-11 11:17] VITALS: BP 153/78; PULSE 62; RESP 16; TEMP 36.4; O2SAT 98
--- NOTE | 2023-05-11 11:19 | W.PM.DSUDISC ---
Date of service: 05/11/23 Time of Service: 14:00 Discharge Plan Disposition Patient Disposition: Home Condition: Stable Discharge Details Attending Provider: Cal Hinkle Primary Care Provider: Tiff Landaverde Home Meds and New Rx's Prescriptions: Continued multivitamin Tablet 1 tab PO DAILY bupropion HCl [Wellbutrin XL] 300 MG tablet extended release 24 hr 300 mg PO DAILY Patient Comments: not taking acetaminophen [Tylenol Extra Strength] 500 mg tablet 1,000 mg PO Q6H PRN fluticasone propionate [Flovent HFA] 110 mcg/actuation HFA aerosol inhaler 2 puff inhalation PRN Rx Instructions: 2 puffs one hour prior to exercise albuterol sulfate [ProAir HFA] 90 mcg/actuation HFA aerosol inhaler 1 - 2 puff inhalation .Q4-6H PRN melatonin-lemon balm leaf extr 10-1 mg tablet 1 tab PO QHS Glucoten 1 EACH tablet 2 tab PO DAILY Patient Comments: not taking Discharge Instructions Additional Instructions: Surgery: Left wrist closed reduction with manipulation under anesthesia Activity: Nonweightbearing left wrist. Recommend elevation to minimize swelling and discomfort. Wiggle all fingers and thumb to increase circulation and prevent stiffness. Prescriptions: None, per patient preference [id number] acetaminophen/Tylenol Dressings: Leave splint and dressing in place until follow-up. Keep clean and dry at all times. Follow-up: 10-[address] Hinkle You may take off the leg compression stockings this evening at home. You may also leave them on a few days longer if you have a history of leg swelling or edema. Let us know right away if you develop any redness, drainage, fevers, chest pain, or trouble breathing. Do not drink alcohol or drive for at least 24 hours after anesthesia. Please call the office during business hours with any questions or concerns. Discharge Orders Discharge Orders: Discharge Order (Routine); Ordered 05/11/23 Ordered By: Cal Hinkle DS: Diagnosis Discharge Diagnosis (1) Closed fracture of left distal radius: Status: Acute
--- NOTE | 2023-05-11 11:22 | ROE_ITS ---
Date of service: 05/11/23 Time of Service: 11:30 Operative Note Operative Note DATE OF PROCEDURE: 05/11/23 PRE-OP DIAGNOSIS: Left displaced intra-articular distal radius fracture POST-OP DIAGNOSIS: same PROCEDURE: Left distal radius fracture closed reduction with manipulation under anesthesia, CPT #67767 SURGEON: Cal Hinkle ANESTHESIA TYPE: Local By Surgeon and General:No Airway Refer to Anesthesia Record COMPLICATIONS: None Patient was transported to: same day Patient's condition: stable Indications: Please see complete medical record for details. Procedure Description: In the operating room, general anesthesia was induced. The patient was positioned supine on the stretcher. All bony prominences were padded. Preoperative antibiotics were omitted. The correct patient, procedure, and side of the procedure were all verified prior to beginning. The wrist was examined, there was palpable dorsal step-off bony prominence. 10 cc of 1% lidocaine plain was injected at the fracture site dorsally for postoperative analgesia. The single plastic extruding machine operator reduction maneuver was then used with the elbow bent 90 degrees, by thigh creating traction, and my hands and thumbs gently manipulating the dorsal aspects of the fracture into more properly aligned position with volar directed pressure. The fractures keyed in nicely. Fluoroscopic images confirmed excellent alignment, unable to appreciate any of the preexisting dorsal fragment intra-articular step-off. An appropriately padded, molded plaster sugar-tong splint was then applied to the extremity. Final images showed maintained reduction. The patient awoke from anesthesia without complication and was transferred to the day surgery unit in a stable condition.
--- NOTE | 2023-05-11 11:26 | W.ANESPRE ---
General Info Date of Service Date Performed: 05/11/23 Height: 5 ft 8 in Weight: 62.2 kg Body Mass Index (BMI): 20.8 Surgical Procedure: Operation Date: 05/11/23 12:40 Proposed Procedure Side Surgeon p Left wrist, closed Reduction under anesthesia Left Cal Hinkle MD Meds Allergies and Home Medications Allergies Allergy/AdvReac Type Severity Reaction Status Date / Time NSAIDS (Non-Steroidal Allergy Verified 05/11/23 11:17 Anti-Inflamma ibuprofen AdvReac Diarrhea Verified 05/11/23 11:17 Home Medication Medication Instructions Recorded bupropion HCl 300 mg 24 hr tablet, 300 mg PO DAILY 02/08/16 extended release (Wellbutrin XL) ithxpoxnfax-rkadfpqxxcr-uw-mineral#3 2 tab PO DAILY 02/24/16 375 mg-300 mg-25 mg-0.5 mg tablet (Glucoten) acetaminophen 500 mg tablet 1,000 mg PO Q6H PRN 12/22/20 (Tylenol Extra Strength) albuterol sulfate 90 mcg/actuation 1 - 2 puff inhalation .Q4-6H PRN 07/08/22 aerosol inhaler (ProAir HFA) fluticasone propionate 110 2 puff inhalation PRN 07/08/22 mcg/actuation HFA aerosol inhaler (Flovent HFA) melatonin 10 mg-lemon balm leaf 1 tab PO QHS 07/08/22 extract 1 mg tablet multivitamin 1 tab PO DAILY 05/09/23 Current Visit Medications: Current Medications Generic Name Dose Route Start Last Admin Trade Name Freq PRN Reason Stop Dose Admin Acetaminophen 1,000 mg 05/11/23 11:21 Acetaminophen 500 Mg Tab PO 06/10/23 11:20 Q6H PRN PRN Ringer's Solution 1,000 mls @ 30 mls/hr 05/11/23 06:00 IV 06/01/23 23:59 INFUSION YONG IV Miscellaneous Supplies 1 each 05/11/23 06:00 Iv Access IV 06/01/23 23:59 DIRECTED YONG Sodium Chloride 0 ml 05/11/23 06:00 Normal Saline Flush 10 Ml Syr IV 06/01/23 23:59 PRN PRN Sodium Chloride 0 ml 05/11/23 06:00 Normal Saline 10 Ml Vial IJ 06/01/23 23:59 DIRECTED PRN Sterile Water 0 ml 05/11/23 06:00 Water,Injection,Sterile 10 Ml Vial IJ 06/01/23 23:59 DIRECTED PRN PFSH Active Problems Active Problems: Problem Status Onset Code Closed fracture of left distal radius 05/02/23 S52.502A Mild cognitive impairment G31.84 Colon polyp, hyperplastic ~01/2021 K63.5 Serrated adenoma of colon ~01/2021 D12.6 Stress incontinence N39.3 Adjustment disorder F43.20 Memory impairment R41.3 Former smoker Z87.891 Insomnia G47.00 COPD (chronic obstructive pulmonary disease) J44.9 Chronic headaches R51.9, G89.29 Prediabetes R73.03 Screening for colon cancer Z12.11 Family history of colon cancer Z80.0 Encounter for screening for other viral diseases Z11.59 Medical History Medical History Family hx colonic polyps History of depression Headache History of prediabetes Vasomotor symptoms due to menopause Low back pain Heel pain IBS (irritable bowel syndrome) Depression Surgical History Surgical History History of colonoscopy (~01/2021) Colonoscopy - IV Sedation (02/24/16) Tobacco Smoking/Tobacco Use Status: Former Tobacco Use Alcohol Alcohol Intake: current Alcohol intake frequency: a few times a month Alcohol type: wine Substance Use Substance use: Never Substance use type: does not use Vital Signs and Lab Results Vital Signs Most Recent Vital Signs in EMR: Most Recent Vital Signs Temp Pulse Resp BP Pulse Ox 36.4 C L 62 16 153/78 H 98 05/11/23 11:17 05/11/23 11:17 05/11/23 11:17 05/11/23 11:17 05/11/23 11:17 Lab Results Blood Type / Crossmatch: No Data to Display Complete Blood Count: No Data to Display Complete Metabolic Panel: No Data to Display Liver Function Panel: No Data to Display Coagulation Panel: No Data to Display Cardiac Panel: No Data to Display Arterial Blood Gas: No Data to Display Venous Blood Gas: No Data to Display Pancreas Panel: No Data to Display Thyroid Panel: No Data to Display Infectious Disease: No Data to Display Blood Cultures: No Data to Display Toxicology Panel: No Data to Display Imaging and Studies Imaging and Studies Study information below may be from another EMR and interpreted by another provider. Please see original notes in EMR for more complete details. Pulmonary Function Summary: 2018: boarderline mild obstructive airways and diffusion defect. Anesthesia Assessment and Plan Anesthesia History Personal History: No History of Anesthesia Complications Family History: No Family History of Anesthesia Complications Exercise Tolerance Exercise Tolerance: Metabolic Equivalents>4 Pertinent Negatives Pertinent Negatives: No Symptoms of GERD, No Major Cardiovascular Symptoms or Complaints, No Major Pulmonary Symptoms or Complaints and No History of CVA/TIA Cardiac & Pulmonary Exam Cardiac Exam: Normal S1/S2 Heart Sounds Pulmonary Exam: Clear Bilateral Breath Sounds Implantable Cardiac Device Does patient have a Pacemaker or an ICD?: No Airway Exam Known Difficult Airway: No Mallampati Class: 2 Mouth Opening: Normal (> 3cm) Thyromental Distance: Greater than 3 cm Neck Range of Motion: Full ROM Neck Circumference: Normal Teeth Condition: Normal Dentition ASA Classification ASA Score: ASA 2 Emergency Case?: No NPO Status NPO Status: NPO Clears >2 hours, Solids >8 hours Anesthesia Plan Resuscitation Status: Full Code Anesthesia Technique: General Anesthesia Airway Planned: Natural Airway Pain Management: Other (Consented for rescue block post op PRN) Monitors Used: Standard Monitors Preoperative Comments:: No recent inhaler use, no SOB or wheeze..
[2023-05-11 11:28] VITALS: BMI 20.8
[2023-05-11] MEDS: Lactated Ringers 1,000 ML 30 ML IV (11:37)
[2023-05-11] MEDS: Lidocaine 1% Multi-Dose 10 ML VIAL (11:47)
[2023-05-11 12:02] VITALS: BP 116/72; PULSE 66; RESP 16; TEMP 36.5; O2SAT 99
--- NOTE | 2023-05-11 12:02 | DI.RAD_ITS ---
Exam(s) XR WRIST LT LIMITED EXAM: XR WRIST LT LIMITED CLINICAL HISTORY: left wrist fracture. TECHNIQUE: 2D digital imaging was performed. COMPARISON: No exams were available for comparison FINDINGS: Fluoroscopy was provided during close reduction of wrist fracture. See procedure report for details. Total fluoroscopy time 3.6 seconds Radiation exposure index/cumulative dose: Ka,r= 0.0640 mGy IMPRESSION: As above. DATA REPOSITORY: RADIATION DOSE DELIVERED:
[2023-05-11] MEDS: Acetaminophen 500 MG TAB 1000 MG PO (12:29)
[2023-05-11 12:33] VITALS: BP 135/81; PULSE 99; RESP 16; TEMP 36.6; O2SAT 99
--- NOTE | 2023-05-11 13:04 | W.ANESPOSTOP ---
Postoperative Evaluation Date, Time and Location Date Performed: 05/11/23 Time Performed: 12:38 Patient Location: Day Surgery Unit Vital Signs Most Recent Imported Vital Signs: Most Recent Vital Signs Temp Pulse Resp BP Pulse Ox 36.6 C 99 H 16 135/81 99 05/11/23 12:33 05/11/23 12:33 05/11/23 12:33 05/11/23 12:33 05/11/23 12:33 Pain Score Most Recent Pain Score: Most Recent Pain Score Pain Level 2 05/11/23 12:33 Assessment Mental Status: Awake (Alert & Oriented to Patient Baseline) Airway and Respiratory Function: Patent airway with normal (patient baseline) respiratory exam Cardiovascular Function: Hemodynamically Stable Hydration Status: Adequately Hydrated Nausea & Vomiting: No Nausea or Vomiting Pain: Pain is tolerable per patient Peripheral Nerve Block: Other (Local by surgeon)
== END 2023-05-11 13:03 | disposition home or self-care (01) ==
PROVIDERS: PCP Nurse Practitioner Family; Visit Provider Student in an Organized Health Care Education/Training Program
PROC: (CPT 25605; principal; 2023-05-11 12:30)
DX: S52.502A Unspecified fracture of the lower end of left radius, initial encounter for closed fracture (principal); X58.XXXA Exposure to other specified factors, initial encounter
CPT/HCPCS: 25605; 73100; J1100; J1885; J2001; J2405

== ENCOUNTER 2023-05-24 10:37 | Outpatient (CLI) | payer OTHER, SELFPAY ==
--- NOTE | 2023-05-24 10:30 | DI.RAD_ITS ---
Exam(s) XR WRIST LT LIMITED EXAM: XR WRIST LT LIMITED INDICATION: left wrist f/u. COMPARISON: CT CT UPPER EXTREMITY LT WO from 05/09/2023 CR XR WRIST LT LIMITED from 05/09/2023 XA XR WRIST LT LIMITED from 05/11/2023 TECHNIQUE: 2D digital imaging was performed. Two views. FINDINGS: There has been no change in the alignment of the distal radial fracture which shows some increased he aling from prior exams. Some soft tissue swelling remains present. No new abnormalities. DATA REPOSITORY: RADIATION DOSE DELIVERED:
== END 2023-05-24 10:38 | disposition home or self-care (01) ==
LOC: DIORS 10:37
PROVIDERS: PCP Nurse Practitioner Family; Visit Provider Student in an Organized Health Care Education/Training Program
DX: S52.135D Nondisplaced fracture of neck of left radius, subsequent encounter for closed fracture with routine healing (principal); X58.XXXD Exposure to other specified factors, subsequent encounter
CPT/HCPCS: 73100

== ENCOUNTER 2023-06-21 11:32 | Outpatient (CLI) | payer OTHER, SELFPAY ==
--- NOTE | 2023-06-21 11:20 | DI.RAD_ITS ---
Exam(s) XR WRIST LT LIMITED EXAM: XR WRIST LT LIMITED CLINICAL HISTORY: F/U FRACTURE. TECHNIQUE: 2D digital imaging was performed. COMPARISON: CR XR WRIST LT LIMITED from 05/24/2023 FINDINGS: Two views. Distal radius fracture exhibits further healing. Fracture line is no longer truly visible. Ulnar st yloid is intact. Scaphoid intact. IMPRESSION: Further healing. DATA REPOSITORY: RADIATION DOSE DELIVERED:
== END 2023-06-21 11:33 | disposition home or self-care (01) ==
LOC: DIORS 11:32
PROVIDERS: PCP Nurse Practitioner Family; Visit Provider Student in an Organized Health Care Education/Training Program
DX: S52.125D Nondisplaced fracture of head of left radius, subsequent encounter for closed fracture with routine healing (principal); X58.XXXD Exposure to other specified factors, subsequent encounter
CPT/HCPCS: 73100

== ENCOUNTER 2023-07-19 15:53 | Outpatient (CLI) | payer OTHER, SELFPAY ==
--- NOTE | 2023-07-19 10:20 | DI.RAD_ITS ---
Exam(s) XR WRIST LT LIMITED EXAM: XR WRIST LT LIMITED CLINICAL HISTORY: F/U FRACTURE. TECHNIQUE: 2D digital imaging was performed. COMPARISON: CR XR WRIST LT LIMITED from 06/21/2023 FINDINGS: Two views-AP and lateral There has been further imaging in the distal radius fracture. Fracture line is no longer visible. U lnar styloid intact. Scaphoid intact. No significant ulnar variance. IMPRESSION: Further healing. DATA REPOSITORY: RADIATION DOSE DELIVERED:
== END 2023-07-19 15:54 | disposition home or self-care (01) ==
LOC: DIORS 15:53
PROVIDERS: PCP Nurse Practitioner Family; Visit Provider Student in an Organized Health Care Education/Training Program
DX: S52.592D Other fractures of lower end of left radius, subsequent encounter for closed fracture with routine healing (principal); X58.XXXD Exposure to other specified factors, subsequent encounter
CPT/HCPCS: 73100

== ENCOUNTER 2023-08-30 11:41 | Outpatient (CLI) | payer OTHER, SELFPAY ==
--- NOTE | 2023-08-30 11:00 | DI.RAD_ITS ---
Exam(s) XR WRIST LT LIMITED EXAM: XR WRIST LT LIMITED INDICATION: F/U FRACTURE. COMPARISON: CR XR WRIST LT LIMITED from 07/19/2023 TECHNIQUE: 2D digital imaging was performed. Two views. FINDINGS: There has been continued healing of the distal radial fracture. No new abnormalities are seen. DATA REPOSITORY: RADIATION DOSE DELIVERED:
== END 2023-08-30 11:42 | disposition home or self-care (01) ==
LOC: DIORS 11:42
PROVIDERS: PCP Nurse Practitioner Family; Visit Provider Student in an Organized Health Care Education/Training Program
DX: S52.522D Torus fracture of lower end of left radius, subsequent encounter for fracture with routine healing (principal); X58.XXXD Exposure to other specified factors, subsequent encounter
CPT/HCPCS: 73100

== ENCOUNTER 2023-09-25 11:15 | Outpatient (REF) | payer OTHER, SELFPAY ==
[2023-09-25 17:44] LABS: Hemoglobin A1C 6.2 % (<5.7)
== END 2023-09-25 11:16 | disposition home or self-care (01) ==
LOC: NCHCN 11:15
PROVIDERS: PCP Nurse Practitioner Family; Visit Provider Nurse Practitioner Family
DX: R73.03 Prediabetes (principal)
CPT/HCPCS: 83036

== ENCOUNTER 2024-01-19 10:05 | Day surgery (SDC) | payer OTHER, SELFPAY ==
--- NOTE | 2024-01-18 22:39 | PDOC.DSDIS_ITS ---
Date of service: 01/19/24 Time of Service: 12:24 Discharge Plan Disposition Patient Disposition: Home Condition: Good Discharge Details Reason For Visit: colon scope Attending Provider: Mayelin Mccabe Primary Care Provider: Tiff Landaverde Home Meds and New Rx's Prescriptions: No Action multivitamin Tablet 1 tab PO DAILY acetaminophen [Tylenol Extra Strength] 500 mg tablet 1,000 mg PO Q6H PRN fluticasone propionate [Flovent HFA] 110 mcg/actuation HFA aerosol inhaler 2 puff inhalation PRN Rx Instructions: 2 puffs one hour prior to exercise albuterol sulfate [ProAir HFA] 90 mcg/actuation HFA aerosol inhaler 1 - 2 puff inhalation .Q4-6H PRN melatonin-lemon balm leaf extr 10-1 mg tablet 1 tab PO QHS bupropion HCl [Wellbutrin XL] 300 mg tablet extended release 24 hr 150 mg PO DAILY Patient Comments: not taking Glucoten 1 EACH tablet 2 tab PO DAILY Patient Comments: not taking zolpidem 5 mg tablet Discharge Instructions Additional Instructions: DSU Colonoscopy Post- Op Instructions Instructions for Everyone who is given Anesthesia: For your safety, please do the following for the next twenty-four (24) hours: *Do Not operate a motor vehicle (car, truck, motorcycle, etc.) *Do Not drink alcoholic beverages or use any recreational drugs for the first 24 hours or while taking pain medications. The medications in your body may have a reaction that can be dangerous. *Do Not make any important decisions or sign any important papers. Findings: multiple polyps Follow up: Repeat in 3-5yrs. My office will send you a letter in 2-3wks time. 1. No lifting over 20 pounds or strenuous activity for the first 24 hours after your procedure. After 24 hours there are no restrictions on your activity but you may feel fatigued for a few days. 2. After you arrive home you may have a light meal and return to your normal diet as you can tolerate it without feeling sick to your stomach. 3. You may have a bloated, gaseous feeling in your belly (abdomen) after a colonoscopy. Passing gas and belching will help. Walking or lying down on your left side with your knees flexed may relieve the discomfort. Call the office at [phone] (Office) or [phone] (Hospital) right away if you notice any of the following: a.Vomiting of blood or ?coffee ground stools?. b.Rectal bleeding 1Tbsp, blood clots or continuous bleeding. c.Severe belly (abdominal) pain. d.A hard distended belly (abdomen) and an inability to pass gas. 4. Please don?t expect to have a normal BM (bowel movement) for 2-3 days after your procedure. 5. If there are questions regarding the findings of your procedure, please contact your doctor 6. If you are unable to contact your doctor with a problem, contact the hospital at [phone]. 7. Continue all your regular medications unless directed otherwise. I understand the above instructions and have no questions. Signature of Patient or Adult Escort Name of Responsible Adult Escort Signature of Nurse Date/Time Stand Alone Forms: Anesthesia Discharge Inst.Cheng (DSU) Activity:: see above Diet:: see above Discharge Orders Discharge Orders: Discharge Order (Routine); Ordered 01/19/24 Ordered By: Mayelin Mccabe DS: Diagnosis Discharge Diagnosis (1) Serrated adenoma of colon: Status: Acute Asessment and Plan: The patient is seen and examined after their colonoscopy.? The patient has been able to pass gas.? They are not having abdominal pain.? They have been able to tolerate liquids and a snack.? They do not have any nausea or vomiting.? They are not having any chest pain or shortness of breath.??? They are not having any rectal bleeding. Their vital signs have been stable-see nursing notes. We discussed findings during their colonoscopy, and any biopsies that were done/polyps that were removed. The patient will be sent a letter with any biopsy results, and when to repeat the colonoscopy.-see discharge instructions. Patient was given explicit instructions to follow-up regarding colonoscopy-refer to discharge instructions.? We reviewed resumption of medications. Patient verbalized understanding and discharged in stable and satisfactory condition- See nursing notes. (2) Stress incontinence: Status: Acute (3) Family history of colon cancer: Status: Acute (4) Chronic headaches: Status: Acute (5) Mild cognitive impairment: Status: Acute (6) COPD (chronic obstructive pulmonary disease): Status: Chronic (7) Insomnia: Status: Acute (8) Former smoker: Status: Acute
--- NOTE | 2024-01-18 22:57 | COLE_ITS ---
Date of service: 01/19/24 Time of Service: 12:32 Colonoscopy Report Date of procedure: 01/19/24 Pre-op diagnosis general: advanced adenoma/family hx CRC Post-op diagnosis procedure note: same Surgeon: Mayelin Mccabe Anesthesia Type: General:No Airway Estimated blood loss (mL): 1 Pathology: other Complications: None Disposition: same day Prep: Miralax/Dulcolax Retraction Time: 23 Procedure Description: After informed consent was obtained the patient was taken to the procedure room and placed in a left decubitous position. Monitors were applied and a time out was done. The patients name, date of , procedure, allergies to medications and metal in their body was reviewed. The patient was then sedated. Once sedated and comfortable a rectal exam was done. External exam was normal. Internal exam revealed a normal sphincter tone and no palpable masses. The scope was then introduced and retrofelexed. No internal hemorrhoids were identified. The scope was then advanced to the cecum w/out difficulty. The TI and appendiceal orifice were identified. The scope was then slowly retracted over 23 minutes back into the rectum. Polyps were removed: .75cm flat polyp at 60cm w/ cold snare. >5cm flat polyp at 50cm w/ cold forcepts. flat .5cm @20cm x2 w/ cold forecpts. Flat .5cm polyps in rectam. All specimens are retrieved and no bleeding is noted. The mucosa is pink/healthy w/ a normal vascular pat tern. There are no AVM's or diverticula seen today. The scope was removed and the patient was woken up and taken back to Same day surgery in stable condition. The patient tolerated the procedure well and there were no immediate complications. Follow up: The patient should follow up in 3-5 years path pd, unless they develop changes in bowel habits or other new gastrointestinal complaints. [place] Bowel Prep [place] Bowel Prep Right Colon: 3 Left Colon: 3 Transverse Colon: 3 Total Score: 9
[2024-01-19 10:39] VITALS: BP 144/73; PULSE 66; RESP 16; TEMP 36.6; O2SAT 98
[2024-01-19] MEDS: Lactated Ringers 1,000 ML 80 ML IV (10:45)
[2024-01-19 10:56] VITALS: BMI 20.9
--- NOTE | 2024-01-19 10:56 | W.ANESPRE ---
General Info Date of Service Date Performed: 01/19/24 Height: 5 ft 8 in Weight: 62.596 kg Body Mass Index (BMI): 20.9 Surgical Procedure: Operation Date: 01/19/24 10:35 Proposed Procedure Side Surgeon lorene Mccabe, DO Meds Allergies and Home Medications Allergies Allergy/AdvReac Type Severity Reaction Status Date / Time NSAIDS (Non-Steroidal Allergy Other (See Verified 01/19/24 10:37 Anti-Inflamma Comment) ibuprofen AdvReac Diarrhea Verified 01/19/24 10:37 Home Medication ?Medication ?Instructions ?Recorded xkikqvccyus-forpldghokg-ox-mineral#3 2 tab PO DAILY 02/24/16 375 mg-300 mg-25 mg-0.5 mg tablet (Glucoten) acetaminophen 500 mg tablet 1,000 mg PO Q6H PRN 12/22/20 (Tylenol Extra Strength) albuterol sulfate 90 mcg/actuation 1 - 2 puff inhalation .Q4-6H PRN 07/08/22 aerosol inhaler (ProAir HFA) fluticasone propionate 110 2 puff inhalation PRN 07/08/22 mcg/actuation HFA aerosol inhaler (Flovent HFA) melatonin 10 mg-lemon balm leaf 1 tab PO QHS 07/08/22 extract 1 mg tablet multivitamin 1 tab PO DAILY 05/09/23 bupropion HCl 300 mg 24 hr tablet, 150 mg PO DAILY 09/25/23 extended release (Wellbutrin XL) zolpidem 5 mg tablet mg 01/19/24 Current Visit Medications: Current Medications Generic Name Dose Route Start Last Admin Trade Name Marioq PRN Reason Stop Dose Admin Hyoscyamine Sulfate 0.125 mg 01/19/24 10:37 Hyoscyamine 0.125 Mg Sl/Oral/Chew SL 02/18/24 10:36 DIRECTED PRN Ringer's Solution 1,000 mls @ 80 mls/hr 01/19/24 06:00 01/19/24 10:45 IV 01/19/24 23:59 80 mls/hr INFUSION YONG Administration IV Miscellaneous Supplies 1 each 01/19/24 06:00 Iv Access IV 01/19/24 23:59 DIRECTED YONG Ondansetron HCl 4 mg 01/19/24 10:37 Ondansetron 4 Mg/2 Ml Vial IVP 02/18/24 10:36 Q4H PRN PRN Nausea / Vomiting Sodium Chloride 0 ml 01/19/24 06:00 Normal Saline Flush 10 Ml Syr IV 01/19/24 23:59 PRN PRN Sodium Chloride 0 ml 01/19/24 06:00 Normal Saline 10 Ml Vial IJ 01/19/24 23:59 DIRECTED PRN Sterile Water 0 ml 01/19/24 06:00 Water,Injection,Sterile 10 Ml Vial IJ 01/19/24 23:59 DIRECTED PRN PFSH Active Problems Active Problems: Problem Status Onset Code Closed fracture of left distal radius Acute 05/02/23 S52.502A Mild cognitive impairment Acute G31.84 Colon polyp, hyperplastic Acute ~01/2021 K63.5 Serrated adenoma of colon Acute ~01/2021 D12.6 Stress incontinence Acute N39.3 Adjustment disorder Chronic F43.20 Memory impairment Acute R41.3 Former smoker Acute Z87.891 Insomnia Acute G47.00 COPD (chronic obstructive pulmonary disease) Chronic J44.9 Chronic headaches Acute R51.9, G89.29 Prediabetes Acute R73.03 Screening for colon cancer Acute Z12.11 Family history of colon cancer Acute Z80.0 Encounter for screening for other viral diseases Acute Z11.59 Medical History Medical History Family hx colonic polyps History of depression Headache History of prediabetes Vasomotor symptoms due to menopause Low back pain Heel pain IBS (irritable bowel syndrome) Depression Surgical History Surgical History History of colonoscopy (~01/2021) Colonoscopy - IV Sedation (02/24/16) Tobacco Smoking/Tobacco Use Status: Former Tobacco Use Alcohol Alcohol Intake: current Alcohol intake frequency: 0-2 drinks per day Alcohol type: wine Substance Use Substance use: Never Substance use type: does not use Vital Signs and Lab Results Vital Signs Most Recent Vital Signs in EMR: Most Recent Vital Signs Temp Pulse Resp BP Pulse Ox 36.6 C 66 16 144/73 H 98 01/19/24 10:39 01/19/24 10:39 01/19/24 10:39 01/19/24 10:39 01/19/24 10:39 Lab Results Blood Type / Crossmatch: No Data to Display Complete Blood Count: No Data to Display Complete Metabolic Panel: No Data to Display Liver Function Panel: No Data to Display Coagulation Panel: No Data to Display Cardiac Panel: No Data to Display Arterial Blood Gas: No Data to Display Venous Blood Gas: No Data to Display Pancreas Panel: No Data to Display Thyroid Panel: No Data to Display Infectious Disease: No Data to Display Blood Cultures: No Data to Display Toxicology Panel: No Data to Display Imaging and Studies Imaging and Studies Study information below may be from another EMR and interpreted by another provider. Please see original notes in EMR for more complete details. Pulmonary Function Summary: 2018: boarderline mild obstructive airways and diffusion defect. Anesthesia Assessment and Plan Anesthesia History Personal History: No History of Anesthesia Complications Family History: No Family History of Anesthesia Complications Exercise Tolerance Exercise Tolerance: Metabolic Equivalents>4 Pertinent Negatives Pertinent Negatives: No Symptoms of GERD and No Major Cardiovascular Symptoms or Complaints Cardiac & Pulmonary Exam Cardiac Exam: Normal S1/S2 Heart Sounds Pulmonary Exam: Clear Bilateral Breath Sounds Implantable Cardiac Device Does patient have a Pacemaker or an ICD?: No Airway Exam Known Difficult Airway: No Mallampati Class: 2 Mouth Opening: Normal (> 3cm) Thyromental Distance: Greater than 3 cm Neck Range of Motion: Full ROM Neck Circumference: Normal Teeth Condition: Normal Dentition ASA Classification ASA Score: ASA 2 Emergency Case?: No NPO Status NPO Status: NPO Clears >2 hours, Solids >8 hours Anesthesia Plan Resuscitation Status: Full Code Anesthesia Technique: General Anesthesia Airway Planned: Natural Airway Monitors Used: Standard Monitors
--- NOTE | 2024-01-19 11:28 | BOWEL_PTH ---
PATIENT: Renetta Eric LOC: [facility] U#:[id number] AGE/SX: 63/F ROOM: RE01/19/[address]: Mayelin Mccabe : 1960 BED: DIS: 01/19/2024 SPEC #: [id number] RECD: 01/19/24 13:06 STATUS: CHEN [place] #: [id number] KRYSTAL: 01/19/24 11:[address]: Mayelin Mccabe DEPT: Surgical Specimen RECD BY: Shelia Laguna ENTERED: 01/19/24 13:08 SP TYPE: Bowel OTHR DR: Tiff Landaverde Tissues: 1 - BIOPSY BOWEL 2 - BIOPSY BOWEL 3 - BIOPSY BOWEL 4 - BIOPSY BOWEL Procedures: GROSS AND MICRO LEVEL 4 Comments: [id number]
[2024-01-19 11:50] VITALS: BP 126/77; PULSE 70; RESP 16; TEMP 36.4; O2SAT 99
[2024-01-19 12:20] VITALS: BP 126/77; PULSE 60; RESP 16; TEMP 36.5; O2SAT 99
--- NOTE | 2024-01-19 14:41 | W.ANESPOSTOP ---
Postoperative Evaluation Date, Time and Location Date Performed: 01/19/24 Time Performed: 11:52 Patient Location: Day Surgery Unit Vital Signs Most Recent Imported Vital Signs: Most Recent Vital Signs Temp Pulse Resp BP Pulse Ox 36.5 C 60 16 126/77 99 01/19/24 12:20 01/19/24 12:20 01/19/24 12:20 01/19/24 12:20 01/19/24 12:20 Pain Score Most Recent Pain Score: Most Recent Pain Score Pain Level 0 01/19/24 12:20 Assessment Mental Status: Awake (Alert & Oriented to Patient Baseline) Airway and Respiratory Function: Patent airway with normal (patient baseline) respiratory exam Cardiovascular Function: Hemodynamically Stable Hydration Status: Adequately Hydrated Nausea & Vomiting: No Nausea or Vomiting Pain: Pt. Denies Any Pain Peripheral Nerve Block: Patient did not receive a nerve block
== END 2024-01-19 12:35 | disposition home or self-care (01) ==
LOC: SUR 10:05
PROVIDERS: PCP Nurse Practitioner Family; Visit Provider Surgery
PROC: 0DJD8ZZ Inspection of Lower Intestinal Tract, Via Natural or Artificial Opening Endoscopic (ICD-10-PCS; CPT 45378; principal; 2024-01-19 10:30)
DX: Z12.11 Encounter for screening for malignant neoplasm of colon; Z80.0 Family history of malignant neoplasm of digestive organs; D12.5 Benign neoplasm of sigmoid colon; K62.1 Rectal polyp
CPT/HCPCS: 45385; 45380; 88305; J2001; J2704

== ENCOUNTER 2024-08-22 00:32 | Outpatient (CLI) | payer OTHER, SELFPAY ==
--- NOTE | 2024-08-22 | DI.MAMMO_ITS ---
Exam(s) MAMMO SCREENING EXAM: MAMMO SCREENING CLINICAL HISTORY: Screening, Z12.31 TECHNIQUE: Bilateral full field digital CC and MLO mammographic images were obtained with 3D tomosyn thesis and utilizing computer aided detection (CAD). COMPARISON: Available for comparison. FINDINGS: Masses/Architectural Distortion: None seen. Microcalcifications: No suspicious pleomorphic-type are seen. Skin Thickening/Nipple Retraction: None. IMPRESSION: 1. No significant interval change with no specific features of malignancy noted. 2. Unless there is more urgent need, screening mammography is recommended, as per [employer] guidelines. BI-RADS Category 1 - Negative Breast Density - Category C - Heterogeneously dense Breast density category C or D implies that the patient has dense breast tissue. Dense breast tissue is very common and is not abnormal but dense breast tissue can make it harder to find cancer on a ma mmogram. Also, dense breast tissue may increase their breast cancer risk. This information about the result of the mammogram report was provided to the patient to raise their awareness. Use this report when you speak with the patient about their risks for breast cancer, which includes their family hist ory. At that time, you may recommend for more screening tests (Ultrasound or MRI) as they might be us eful based on their risk. A negative radiographic report should not delay biopsy if a dominant or clinically suspicious mass is present. Up to ten percent of cancers are not identified on mammography. A negative report may reinforce clinical impression. Adenosis and dense breasts may obscure an underlying neoplasm. False positive reports average 6 to 10%. Patient will receive a letter notifying them of these results.
== END 2024-08-22 00:52 ==
LOC: DI 00:33
PROVIDERS: PCP Nurse Practitioner Family; Visit Provider Nurse Practitioner Family
DX: Z12.31 Encounter for screening mammogram for malignant neoplasm of breast (principal); R92.333 Mammographic heterogeneous density, bilateral breasts
CPT/HCPCS: 77063; 77067